=== PATIENT | female | born 1990 | race African-American/Black ===

== ENCOUNTER 2016-11-04 16:38 | Observation (INO) | payer BC, OTHER ==
[2016-11-04] MEDS ORDERED: SODIUM CHLORIDE 0.9% 1,000 ML IV STA (17:32)
[2016-11-04] MEDS ORDERED: diphenhydrAMINE 50 MG/ML 1 ML VIAL IVP STA (17:32)
[2016-11-04] MEDS ORDERED: KETOROLAC 30 MG/ML 1 ML VIAL IVP STA (17:32)
[2016-11-04] MEDS ORDERED: METOCLOPRAMIDE 5 MG/ML 2 ML VIAL IVP STA (17:32)
--- NOTE | 2016-11-04 17:39 | ED ---
Headache HPI <EricJamison - Last Filed: 11/04/16 21:52> - General Source: RN notes reviewed, old records reviewed Mode of arrival: ambulatory Limitations: no limitations <Myrna Hanily - Last Filed: 11/05/16 03:23> - General Chief Complaint: Headache Stated Complaint: Headache Time Seen by Provider: 11/04/16 17:06 - History of Present Illness Initial Comments: This is a 26-year-old female presenting to the emergency Department chief complaint of a headache for the past 2 days as well changes. She reports that her vision is blurry, and occasionally she'll have doubled with flexion. She reports it's worse in her right eye. He states that almost feels as if she is seeing everything gets under water.. She states she has a history of optic neuritis. She states that she's had no fever or chills or neck pain. She reports that her vision changes have caused her to feel somewhat off balance. She also reports that she was diagnosed with MS in 2011. She states that she had a lapse in her insurance and has not been be treated for the past few years. She previously had saw Dr. Aaron. She reports that she's had no nausea or vomiting. She is also complains of some mild abdominal pain but states that this will go away. She states that it just feels like he somewhat upset stomach. Patient denies any dysuria or hematuria, changes in bowel movements. She reports that she does wear glasses. She states that she is also concerned she may have a minor sinus infection which is related to her symptoms. (Dorene Han) - Related Data Home Medications Medication Instructions Recorded Confirmed No Known Home Medications [No 11/04/16 11/04/16 Known Home Medications] Allergies Allergy/AdvReac Type Severity Reaction Status Date / Time Coconut Allergy Anaphylaxis Verified 11/04/16 16:59 famotidine [From Pepcid] AdvReac Nausea Verified 11/04/16 17:08 Review of Systems ROS Other: All systems not noted in ROS Statement are negative. <Jamison Reyes - Last Filed: 11/04/16 21:52> ROS Other: All systems not noted in ROS Statement are negative. <Dorene Han - Last Filed: 11/05/16 03:23> ROS Statement: Those systems with pertinent positive or pertinent negative responses have been documented in the HPI. Past Medical History Additional Past Medical History / Comment(s): HX of MS and Lupus. ABN PAP TEST. History of Any Multi-Drug Resistant Organisms: None Reported Past Surgical History: Section Past Anesthesia/Blood Transfusion Reactions: No Reported Reaction Past Psychological History: No Psychological Hx Reported Smoking Status: Never smoker Past Alcohol Use History: None Reported Past Drug Use History: None Reported - Past Family History Mother Family Medical History: Blood Disorder, Deep Vein Thrombosis (DVT), Pulmonary Embolus Additional Family Medical History / Comment(s): Lupus <Dorene Han - Last Filed: 11/05/16 03:23> General Exam <Jamison Reyes - Last Filed: 11/04/16 21:52> Limitations: no limitations General appearance: alert, in no apparent distress Head exam: Present: atraumatic, normocephalic, normal inspection Eye exam: Present: normal appearance, PERRL, EOMI, other (Patient wears glasses. ). Absent: scleral icterus, conjunctival injection, periorbital swelling Expanded Eyelids: Normal Inspection: Bilateral Pupils: Regular, Round: Bilateral, Reactive: Bilateral Sclera/Conjunctival: Normal Inspection: Bilateral Posterior chamber: Papilledema: Bilateral Visual acuity (R) = 20/: 40 Visual acuity (L) = 20/: 40 With correction: Yes ENT exam: Present: normal exam, normal oropharynx, mucous membranes moist, TM's normal bilaterally Neck exam: Present: normal inspection. Absent: tenderness, meningismus, lymphadenopathy Respiratory exam: Present: normal lung sounds bilaterally. Absent: respiratory distress, wheezes, rales, rhonchi, stridor Cardiovascular Exam: Present: regular rate, normal rhythm, normal heart sounds. Absent: systolic murmur, diastolic murmur, rubs, gallop, clicks GI/Abdominal exam: Present: soft, normal bowel sounds, other (Protuberant abdomen.). Absent: distended, tenderness, guarding, rebound, rigid Extremities exam: Present: normal inspection, full ROM, normal capillary refill. Absent: tenderness, pedal edema, joint swelling, calf tenderness Back exam: Present: normal inspection Neurological exam: Present: alert, oriented X3, CN II-XII intact Psychiatric exam: Present: normal affect, normal mood Skin exam: Present: warm, dry, intact, normal color. Absent: rash <Dorene Han - Last Filed: 11/05/16 03:23> - General Exam Comments Initial Comments: This is a morbidly obese 26-year-old female. Patient does not appear to be in any acute distress. Patient is pleasant and cooperative. (EmelyDorene) Medical Decision Making - Lab Data Result diagrams: 11/04/16 17:20 11/04/16 17:20 <Jamison Reyes - Last Filed: 11/04/16 21:52> - Lab Data Result diagrams: 11/04/16 17:20 11/04/16 17:20 - Radiology Data Radiology results: report reviewed <Dorene Han - Last Filed: 11/05/16 03:23> - Medical Decision Making Medical decision-making. Patient has a history of optic neuritis. Again appears to be restarting at this time she reports she has a positive history of MS. She sees dr aaron. The case discussed with Dr. Marion patient admitted his service. Dr. Aaron be called for orders concerning optic neuritis. Dr. Eric Aaron was notified he recommends [place] Medrol 250 mg IV every 8 hours with MRI of the brain with and without contrast in the morning. Dr. Reyes (Jamison Reyes) This is a 26-year-old female presenting to the emergency Department chief complaint of a headache for the past 2 days as well changes. She reports that her vision is blurry, and occasionally she'll have doubled with flexion. She reports it's worse in her right eye. He states that almost feels as if she is seeing everything gets under water.. She states she has a history of optic neuritis. She states that she's had no fever or chills or neck pain. She reports that her vision changes have caused her to feel somewhat off balance. She also reports that she was diagnosed with MS in 2011. Patient's vision was intestine and 20/40 in both eyes with correction. She states that it seems to be acutely worse than previously. CT of the brain was performed and negative for any acute process. There is some evidence of some sinusitis. Patient labwork was all reviewed and negative for any significant abnormalities. Discussed this case with Dr. Reyes. Given patient's history of MS and optic neuritis. Appropriate to admit the patient for IV steroids. Patient informed of this. Dr. farley. We did consult Dr. Aaron and he recommended 250 mg of IV Solu-Medrol every 8 hours. He also wants an MRI of the brain with and without contrast in the morning which is been ordered. Patient agrees to the admission. (Dorene Han) - Lab Data Lab Results 11/04/16 11/04/16 11/04/16 Range/Units 17:20 17:20 17:20 WBC 6.1 (3.8-10.6) k/uL RBC 5.06 (3.80-5.40) m/uL Hgb 13.0 (11.4-16.0) gm/dL Hct 40.4 (34.0-46.0) % MCV 79.8 L (80.0-100.0) fL MCH 25.7 (25.0-35.0) pg MCHC 32.1 (31.0-37.0) g/dL RDW 14.5 (11.5-15.5) % Plt Count 303 (150-450) k/uL Neutrophils % 51 % Lymphocytes % 41 % Monocytes % 5 % Eosinophils % 1 % Basophils % 0 % Neutrophils # 3.1 (1.3-7.7) k/uL Lymphocytes # 2.5 (1.0-4.8) k/uL Monocytes # 0.3 (0-1.0) k/uL Eosinophils # 0.0 (0-0.7) k/uL Basophils # 0.0 (0-0.2) k/uL Hypochromasia Slight PT 10.2 (9.0-12.0) sec INR 1.0 (<1.2) APTT 25.5 (22.0-30.0) sec Sodium 142 (137-145) mmol/L Potassium 4.2 (3.5-5.1) mmol/L Chloride 107 (98-107) mmol/L Carbon Dioxide 23 (22-30) mmol/L Anion Gap 12 mmol/L BUN 15 (7-17) mg/dL Creatinine 0.70 (0.52-1.04) mg/dL Est GFR (MDRD) Af Amer >60 (>60 ml/min/1.73 sqM) Est GFR (MDRD) Non-Af >60 (>60 ml/min/1.73 sqM) Glucose 88 (74-99) mg/dL Calcium 9.7 (8.4-10.2) mg/dL Magnesium 1.9 (1.6-2.3) mg/dL Total Bilirubin 0.4 (0.2-1.3) mg/dL AST 23 (14-36) U/L ALT 36 (9-52) U/L Alkaline Phosphatase 99 (38-126) U/L Total Protein 7.1 (6.3-8.2) g/dL Albumin 4.1 (3.5-5.0) g/dL Amylase 43 (30-110) U/L Lipase 55 (23-300) U/L Urine Color Urine Appearance (Clear) Urine pH (5.0-8.0) Ur Specific [place] (1.001-1.035) Urine Protein (Negative) Urine Glucose (UA) (Negative) Urine Ketones (Negative) Urine Blood (Negative) Urine Nitrite (Negative) Urine Bilirubin (Negative) Urine Urobilinogen (<2.0) mg/dL Ur Leukocyte Esterase (Negative) Urine RBC (0-5) /hpf Urine WBC (0-5) /hpf Ur Squamous Epith Cells (0-4) /hpf Urine Mucus (None) /hpf Urine HCG, Qual (Not Detectd) 11/04/16 11/04/16 Range/Units 18:10 18:10 WBC (3.8-10.6) k/uL RBC (3.80-5.40) m/uL Hgb (11.4-16.0) gm/dL Hct (34.0-46.0) % MCV (80.0-100.0) fL MCH (25.0-35.0) pg MCHC (31.0-37.0) g/dL RDW (11.5-15.5) % Plt Count (150-450) k/uL Neutrophils % % Lymphocytes % % Monocytes % % Eosinophils % % Basophils % % Neutrophils # (1.3-7.7) k/uL Lymphocytes # (1.0-4.8) k/uL Monocytes # (0-1.0) k/uL Eosinophils # (0-0.7) k/uL Basophils # (0-0.2) k/uL Hypochromasia PT (9.0-12.0) sec INR (<1.2) APTT (22.0-30.0) sec Sodium (137-145) mmol/L Potassium (3.5-5.1) mmol/L Chloride (98-107) mmol/L Carbon Dioxide (22-30) mmol/L Anion Gap mmol/L BUN (7-17) mg/dL Creatinine (0.52-1.04) mg/dL Est GFR (MDRD) Af Amer (>60 ml/min/1.73 sqM) Est GFR (MDRD) Non-Af (>60 ml/min/1.73 sqM) Glucose (74-99) mg/dL Calcium (8.4-10.2) mg/dL Magnesium (1.6-2.3) mg/dL Total Bilirubin (0.2-1.3) mg/dL AST (14-36) U/L ALT (9-52) U/L Alkaline Phosphatase (38-126) U/L Total Protein (6.3-8.2) g/dL Albumin (3.5-5.0) g/dL Amylase (30-110) U/L Lipase (23-300) U/L Urine Color Yellow Urine Appearance Cloudy H (Clear) Urine pH 6.0 (5.0-8.0) Ur Specific [place] 1.028 (1.001-1.035) Urine Protein Trace H (Negative) Urine Glucose (UA) Negative (Negative) Urine Ketones Negative (Negative) Urine Blood Moderate H (Negative) Urine Nitrite Negative (Negative) Urine Bilirubin Negative (Negative) Urine Urobilinogen 3.0 (<2.0) mg/dL Ur Leukocyte Esterase Trace H (Negative) Urine RBC 4 (0-5) /hpf Urine WBC 3 (0-5) /hpf Ur Squamous Epith Cells 7 H (0-4) /hpf Urine Mucus Occasional H (None) /hpf Urine HCG, Qual Not Detected (Not Detectd) - Radiology Data No acute intracranial hemorrhage, mass effect or midline shift seen. Polyp with mucosal thickening within the next her sinus versus true mucosal polyps. ( Dorene Han) Disposition <Jamison Reyes - Last Filed: 11/04/16 21:52> Time of Disposition: 21:16 <Dorene Han - Last Filed: 11/05/16 03:23> Clinical Impression: Headache, Optic neuritis Disposition: ADMITTED IP TO THIS HOSP
[2016-11-04] MEDS: SODIUM CHLORIDE 0.9% 1,000 ML IV SCH ×2 (18:11→21:47)
[2016-11-04 18:19] LABS: Basophils % (A) 0 %; CH 24.9; CHCM 31.4; Eosinophils % (A) 1 %; HCT 40.4 % (34.0-46.0); HDW 2.58; Hypochromasia Slight; Luc # (Auto) 0.15; Luc % (Auto) 2; Lymphocytes # (A) 2.5 k/uL (1.0-4.8); Lymphocytes % (A) 41 %; MCH 25.7 pg (25.0-35.0); MCHC 32.1 g/dL (31.0-37.0); MCV 79.8 fL (80.0-100.0); Mean Platelet Volume 7.4; Monocytes # (A) 0.3 k/uL (0-1.0); Monocytes % (A) 5 %; Neutrophils # (A) 3.1 k/uL (1.3-7.7); Neutrophils % (A) 51 %; RBC 5.06 m/uL (3.80-5.40); RDW 14.5 % (11.5-15.5); WBC 6.1 k/uL (3.8-10.6); WBC (Perox) 6.26
[2016-11-04 18:31] LABS: Appearance,Urine Cloudy (Clear); Bilirubin,Urine Negative (Negative); Glucose,Urine (UA) Negative (Negative); Ketones,Urine Negative (Negative); Leukocyte Esterase,Urine Trace (Negative); Mucus,Urine Occasional /hpf; Nitrite,Urine Negative (Negative); Particle Count 9034; Protein,Urine Trace (Negative); RBC,Urine 4 /hpf (0-5); Specific Gravity,Urine 1.028 (1.001-1.035); Squamous Epithelial Cell,Urine 7 /hpf (0-4); UA Billing (MACRO vs. MICRO) MICRO; WBC,Urine 3 /hpf (0-5)
[2016-11-04 18:32] LABS: Partial Thromboplastin Time 25.5 sec (22.0-30.0)
[2016-11-04 18:35] LABS: Prothrombin Time 10.2 sec (9.0-12.0)
[2016-11-04 18:37] LABS: ALT 36 U/L (9-52); AST 23 U/L (14-36); Alkaline Phosphatase 99 U/L (38-126); Amylase 43 U/L (30-110); Anion Gap 12 mmol/L; Blood Urea Nitrogen 15 mg/dL (7-17); Calcium 9.7 mg/dL (8.4-10.2); Carbon Dioxide 23 mmol/L (22-30); Chloride 107 mmol/L (98-107); Glucose 88 mg/dL (74-99); Magnesium 1.9 mg/dL (1.6-2.3); Non-African American GFR(MDRD) >60 (>60 ml/min/1.73 sqM); Potassium 4.2 mmol/L (3.5-5.1); Sodium 142 mmol/L (137-145); Total Bilirubin 0.4 mg/dL (0.2-1.3); Total Protein 7.1 g/dL (6.3-8.2)
--- NOTE | 2016-11-04 19:05 | CT ---
EXAMINATION TYPE: CT brain wo con DATE OF EXAM: 11/04/2016 COMPARISON: MRI dated 12/21/2012. HISTORY: Headache x [address] DLP: 1124.80 mGycm. Automated Exposure Control for Dose Reduction was Utilized. TECHNIQUE: CT scan of the head is performed without contrast. FINDINGS: There is no acute intracranial hemorrhage, mass effect, or midline shift identified. The ventricles and sulci are within normal limits in size. The globes are intact. Polypoid mucosal thic kening versus true mucosal polyps are seen within the maxillary sinuses. Remaining paranasal sinuses and mastoid air cells are well aerated. IMPRESSION: 1. No acute intracranial hemorrhage, mass effect, or midline shift is seen. 2. Polypoid mucosal thickening within the maxillary sinuses versus true mucosal polyps.
[2016-11-04] MEDS ORDERED: methylPREDNISolone SOD SUCCI 250 MG in SODIUM CHLORIDE 0.9% 100 ML IVPB STA (20:40)
[2016-11-04] MEDS ORDERED: ACETAMINOPHEN TAB 325 MG TAB PO PRN (20:55)
[2016-11-04] MEDS ORDERED: KETOROLAC 30 MG/ML 1 ML VIAL IVP PRN (20:55)
[2016-11-04] MEDS ORDERED: NALOXONE 0.4 MG/ML 1 ML VIAL IV PRN (20:55)
[2016-11-04] MEDS ORDERED: ONDANSETRON 4 MG/2 ML VIAL IVP PRN (20:55)
[2016-11-04 22:46] VITALS: BMI 73.1
[2016-11-05] MEDS ORDERED: ENOXAPARIN 40 MG/0.4 ML SYRINGE SQ SCH (09:00)
[2016-11-05] MEDS: SODIUM CHLORIDE 0.9% 1,000 ML IV SCH (09:42)
[2016-11-05 17:37] VITALS: BP 140/79; PULSE 75; RESP 20; TEMP 97.3
--- NOTE | 2016-11-05 18:14 | P.HPIM ---
History of Present Illness H&P Date: 11/05/16 Chief Complaint: Foggy vision History of presenting complaint: This is a pleasant [address] Ramon. Patient was diagnosed with multiple sclerosis via lumbar puncture in 2011. Patient did follow up at the knee was to [place]. Also diagnosed with lupus. Patient was at work when she noticed headache anything becoming foggy and some loss of peripheral vision this was similar to prior MS exacerbation and she decided to come in. She also lost losing a bit of balance. Patient is put on IV Solu-Medrol. Since then she 's feeling active bit better. GEN.: Tired EYES: As above HEENT: As above] NECK: None RESPIRATORY: None CARDIOVASCULAR: None GASTROINTESTINAL: None GENITOURINARY: None MUSCULOSKELETAL: None LYMPHATICS: None HEMATOLOGICAL: None PSYCHIATRY: None NEUROLOGICAL: As above Past medical history: Multiple sclerosis, lupus, Past surgical history: Social history: Does not smoke or drink alcohol. Lives with her boyfriend. 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 Family history: DVT, PE, lupus VITAL SIGNS: 98.1, 80, 20, 162/80, 99% room air GENERAL: Well built, sitting up in a chair, BMI 73.2 comfortable. EYES: Pupils equal. Conjunctiva normal. HEENT: External appearance of nose and ears normal, oral cavity grossly normal. NECK: JVD not raised; masses not palpable. HEART: First and second heart sounds are normal; no edema. LUNGS: Respiratory rate normal; clear to auscultation. ABDOMEN: Soft, nontender, liver spleen not palpable, no masses palpable. LYMPHATICS: No lymph nodes palpable in the axilla and neck. PSYCH: Alert and oriented x3; mood and affect normal. NEUROLOGICAL: [Some decrease in peripheral vision, power and sensation grossly intact Investigations: White count 6.1 potassium 4.2 renal function normal Computed tomography scan of brain unremarkable Assessment: -Acute exacerbation of multiple sclerosis could be optic neuritis, with good response to IV Solu-Medrol -Chronic lupus not on any medications currently -Morbid obesity BMI 73.2 Plan: Patient started on IV Solu-Medrol. Requesting to go home. I did tell her she' s been to see Dr. Savage from neurology and I'll let him decide the same. Lovenox for DVT prophylaxis. Patient she dietitian for weight loss measures. Past Medical History Past Medical History: Neurologic Disorder Additional Past Medical History / Comment(s): HX of MS and Lupus. ABN PAP TEST. History of Any Multi-Drug Resistant Organisms: None Reported Past Surgical History: Section Past Anesthesia/Blood Transfusion Reactions: No Reported Reaction Past Psychological History: No Psychological Hx Reported Smoking Status: Never smoker Past Alcohol Use History: None Reported Past Drug Use History: None Reported - Past Family History Mother Family Medical History: Blood Disorder, Deep Vein Thrombosis (DVT), Pulmonary Embolus Additional Family Medical History / Comment(s): Lupus Medications and Allergies Home Medications Medication Instructions Recorded Confirmed Type No Known Home Medications [No 11/04/16 11/04/16 History Known Home Medications] Allergies Allergy/AdvReac Type Severity Reaction Status Date / Time Coconut Allergy Anaphylaxis Verified 11/04/16 16:59 famotidine [From Pepcid] AdvReac Nausea Verified 11/04/16 17:08 Results CBC & Chem 7: 11/04/16 17:20 11/04/16 17:20
--- NOTE | 2016-11-15 19:07 | DS ---
FINAL DIAGNOSIS: 1. Acute exacerbation of multiple sclerosis with possible optic neuritis. 2. Chronic lupus stable, not on any medications. 3. Morbid obesity, BMI 33.2. CONSULTATIONS: Dr. Savage from neurology. HOSPITAL COURSE: This is a patient who presented with MS exacerbation who presented with some change in vision. The patient put on IV Solu-Medrol. Started feeling better. Seen by Dr. Savage was consulted. The patient feeling better. The patient had MRI scan was scheduled. Very keen to go home. The nurse talked to Dr. Olmos team. The patient being discharged. Discharge planning more than 35 minutes. DC MEDICATIONS: 1. Prednisone taper. 2. Fiorinal prn. Follow with Dr. Hernandez in two days. Follow-up with Dr. Savage in one week. PHYSICAL EXAMINATION: ( ) power and sensation grossly intact. MTDD
== END 2016-11-05 20:27 | disposition home or self-care (01) ==
LOC: EC 16:38 → INTOOBSV 21:04 → 6PED 21:04
PROVIDERS: ADMIT Hospitalist; ATTEND Hospitalist
DX: G35 Multiple sclerosis (principal); M32.9 Systemic lupus erythematosus, unspecified; H46.9 Unspecified optic neuritis; Z88.8 Allergy status to other drugs, medicaments and biological substances; Z91.018 Allergy to other foods; E66.01 Morbid (severe) obesity due to excess calories; Z68.45 Body mass index [BMI] 70 or greater, adult
CPT/HCPCS: 99285; 96375 ×4; 96361 ×2; 96365; 96366; 96372; 96376; 36415; 80053; 82150; 83690; 83735; 85025; 85610; 85730; 81001; 81025; 70450; G0378 ×3; J1200; J2765; J2930 ×2; J1650; J1885 ×2

== ENCOUNTER 2016-11-14 12:04 | Emergency (ER) | payer BC ==
[2016-11-14 12:20] VITALS: BP 143/91; PULSE 95; RESP 20; TEMP 98.3
[2016-11-14] MEDS ORDERED: KETOROLAC 30 MG/ML 1 ML VIAL IVP STA (13:35)
[2016-11-14] MEDS ORDERED: diphenhydrAMINE 50 MG/ML 1 ML VIAL IVP STA (13:35)
[2016-11-14] MEDS ORDERED: METOCLOPRAMIDE 5 MG/ML 2 ML VIAL IVP STA (13:35)
--- NOTE | 2016-11-14 13:35 | ED ---
Chest Pain HPI - General Chief Complaint: Chest Pain Stated Complaint: Chest Pain Time Seen by Provider: 11/14/16 13:23 Source: patient, RN notes reviewed, old records reviewed Mode of arrival: wheelchair Limitations: no limitations - History of Present Illness Initial Comments: This is a 26-year-old female presenting to emergency Department chief complaining of headache and chest pain for the past few days. She was seen in this facility, admitted for an acute MS exacerbation. Patient was subsequently discharged on steroids, and has been taking the steroid taper for the past week. Patient reports that occasionally she'll feel like her heart is racing. She denies any shortness of breath, or cough associated with her chest pain. She states that it feels like it's starting from her sternum and radiates towards her back. She denies any nausea or vomiting, denies any acute vision changes, shortness of breath, cough, abdominal pain, dysuria, hematuria or changes in bowel movements. - Related Data Home Medications Medication Instructions Recorded Confirmed predniSONE See Taper PO DAILY 11/14/16 11/14/16 Previous Rx's Medication Instructions Recorded Butalb/Asprin/Caff 50-325-40Mg 1 - 2 cap PO Q4HR #12 capsule 11/14/16 [Fiorinal 50-325-40 MG] Allergies Allergy/AdvReac Type Severity Reaction Status Date / Time C[place]ut Allergy Anaphylaxis Verified 11/14/16 13:27 famotidine [From Pepcid] AdvReac DOES NOT Verified 11/14/16 13:27 WORK Review of Systems ROS Statement: Those systems with pertinent positive or pertinent negative responses have been documented in the HPI. ROS Other: All systems not noted in ROS Statement are negative. EKG Findings - EKG Comments: EKG Findings:: EKG shows normal sinus rhythm. Ventricular rate 94 bpm. MS interval 154 ms. QRS duration 60 ms. QT QTc is 3:30/422 ms. No evidence of ST elevation or T-wave inversion. Notes atrial or ventricular arrhythmias. Past Medical History Past Medical History: Neurologic Disorder Additional Past Medical History / Comment(s): HX of MS and Lupus. ABN PAP TEST. History of Any Multi-Drug Resistant Organisms: None Reported Past Surgical History: Section Past Anesthesia/Blood Transfusion Reactions: No Reported Reaction Past Psychological History: No Psychological Hx Reported Smoking Status: Never smoker Past Alcohol Use History: None Reported Past Drug Use History: None Reported - Past Family History Mother Family Medical History: Blood Disorder, Deep Vein Thrombosis (DVT), Pulmonary Embolus Additional Family Medical History / Comment(s): Lupus General Exam - General Exam Comments Initial Comments: This is a morbidly obese 26 year old male. Limitations: no limitations General appearance: alert, in no apparent distress Head exam: Present: atraumatic, normocephalic, normal inspection Eye exam: Present: normal appearance, PERRL, EOMI. Absent: scleral icterus, conjunctival injection, periorbital swelling ENT exam: Present: normal exam, mucous membranes moist Neck exam: Present: normal inspection. Absent: tenderness, meningismus, lymphadenopathy Respiratory exam: Present: normal lung sounds bilaterally. Absent: respiratory distress, wheezes, rales, rhonchi, stridor Cardiovascular Exam: Present: regular rate, normal rhythm, normal heart sounds. Absent: systolic murmur, diastolic murmur, rubs, gallop, clicks GI/Abdominal exam: Present: soft, normal bowel sounds. Absent: distended, tenderness, guarding, rebound, rigid Extremities exam: Present: normal inspection, full ROM, normal capillary refill. Absent: tenderness, pedal edema, joint swelling, calf tenderness Back exam: Present: normal inspection Neurological exam: Present: alert, oriented X3, CN II-XII intact Psychiatric exam: Present: normal affect, normal mood Skin exam: Present: warm, dry, intact, normal color. Absent: rash Course Vital Signs 11/14/16 12:19 Temperature 98.3 F Pulse Rate 95 Respiratory 20 Rate Blood Pressure 143/91 O2 Sat by Pulse 99 Oximetry - Reevaluation(s) Reevaluation #1: 11/14/16 15:30 Patient was reevaluated this time and reports that her symptoms have resolved. She states her headache is diminished and she has no chest pain. Chest Pain [facility] This is a 26-year-old female chief complaint of 1 day of chest pain, and migraine headache. She is currently being treated for MS exacerbation and being tapered down on her steroid. Patient ports that her chest pain is not associated with cough, or shortness of breath. Patient's EKG was reviewed and shows no evidence of any abnormalities. Chest x-ray was also negative, No acute cardio pulmonary processes. Patient's lab work was reviewed and showed no abnormalities, negative troponins and cardiac profile. Patient reports that she is feeling better after, Toradol, Reglan and Benadryl. Patient was informed that if her chest pain worsens or does have other associated symptoms like cough or shortness of breath she needs to come and get reevaluated. Discussed returning to the emergency department if any alarming signs or symptoms occur. Patient also requested to have medication and prescribed for her migraines. Discussed that I will write her for a short prescription for Fioricet and she needs follow-up with her primary. Disposition Clinical Impression: Atypical chest pain, Migraine Disposition: HOME SELF-CARE Condition: Good Instructions: Chest Pain (ED) Additional Instructions: Patient is to rest, increase fluids. Follow-up with primary care physician. Return to the emergency department if any alarming signs or symptoms occur. Prescriptions: Butalb/Asprin/Caff 50-325-40Mg [Fiorinal 50-325-40 MG] 1 - 2 cap PO Q4HR #12 capsule Referrals: Ramy Hernandez MD [Primary Care Provider] - 1-2 days Time of Disposition: 15:32
[2016-11-14 14:40] LABS: Anisocytosis Slight; Basophils # (A) 0.1 k/uL (0-0.2); Basophils % (A) 1 %; CH 25.9; CHCM 31.7; Eosinophils # (A) 0.1 k/uL (0-0.7); Eosinophils % (A) 0 %; HCT 45.6 % (34.0-46.0); HDW 2.62; HGB 13.9 gm/dL (11.4-16.0); Luc # (Auto) 0.13; Luc % (Auto) 1; Lymphocytes # (A) 3.7 k/uL (1.0-4.8); Lymphocytes % (A) 29 %; MCH 25.2 pg (25.0-35.0); MCHC 30.6 g/dL (31.0-37.0); MCV 82.3 fL (80.0-100.0); Mean Platelet Volume 7.7; Monocytes # (A) 0.4 k/uL (0-1.0); Monocytes % (A) 3 %; Neutrophils # (A) 8.5 k/uL (1.3-7.7); Neutrophils % (A) 67 %; RBC 5.54 m/uL (3.80-5.40); WBC 12.8 k/uL (3.8-10.6); WBC (Perox) 12.66
--- NOTE | 2016-11-14 14:49 | XR ---
EXAMINATION TYPE: XR chest 2V DATE OF EXAM: 11/14/2016 COMPARISON: NONE HISTORY: Chest pain and headache TECHNIQUE: Frontal and lateral views of the chest are obtained. FINDINGS: There is no focal air space opacity, pleural effusion, or pneumothorax seen. The cardiac silhouette size is within normal limits. The osseous structures are intact. IMPRESSION: No acute cardiopulmonary process.
[2016-11-14 14:54] LABS: ALT 36 U/L (9-52); AST 14 U/L (14-36); Alkaline Phosphatase 114 U/L (38-126); Amylase 57 U/L (30-110); Anion Gap 10 mmol/L; Blood Urea Nitrogen 20 mg/dL (7-17); Calcium 9.3 mg/dL (8.4-10.2); Carbon Dioxide 25 mmol/L (22-30); Chloride 101 mmol/L (98-107); Glucose 84 mg/dL (74-99); Magnesium 1.8 mg/dL (1.6-2.3); Non-African American GFR(MDRD) >60 (>60 ml/min/1.73 sqM); Partial Thromboplastin Time 23.9 sec (22.0-30.0); Potassium 4.7 mmol/L (3.5-5.1); Prothrombin Time 9.8 sec (9.0-12.0); Sodium 136 mmol/L (137-145); Total Bilirubin 0.2 mg/dL (0.2-1.3)
[2016-11-14 14:57] LABS: Creatine Kinase 61 U/L (30-135)
[2016-11-14 15:11] LABS: Creatine Kinase MB 0.6 ng/mL (0.0-2.4); Troponin I <0.012 ng/mL (0.000-0.034)
== END 2016-11-14 15:48 | disposition home or self-care (01) ==
LOC: EC 12:04
DX: G43.909 Migraine, unspecified, not intractable, without status migrainosus (principal); R07.89 Other chest pain; M54.9 Dorsalgia, unspecified; G35 Multiple sclerosis; E66.01 Morbid (severe) obesity due to excess calories; Z79.52 Long term (current) use of systemic steroids; Z88.8 Allergy status to other drugs, medicaments and biological substances; Z91.018 Allergy to other foods; Z68.45 Body mass index [BMI] 70 or greater, adult
CPT/HCPCS: 36415; 93005; 80053; 82150; 82550; 82553; 83690; 83735; 84484; 85025; 85610; 85730; 71020; 99285; 96374; 96375 ×2; J1200; J2765; J1885

== ENCOUNTER → 2016-12-17 | Outpatient (CLI) | payer BC ==
[2016-12-17 14:41] VITALS: BP 136/78; PULSE 103; RESP 16; TEMP 98; BMI 76.0
[2016-12-17 16:40] LABS: ALT 40 U/L (9-52); AST 22 U/L (14-36); Alkaline Phosphatase 102 U/L (38-126); Anion Gap 8 mmol/L; Blood Urea Nitrogen 13 mg/dL (7-17); Calcium 9.3 mg/dL (8.4-10.2); Carbon Dioxide 26 mmol/L (22-30); Chloride 105 mmol/L (98-107); Cholesterol 194 mg/dL (<200); Glucose 91 mg/dL (74-99); HDL Cholesterol 63 mg/dL (40-60); Non-African American GFR(MDRD) >60 (>60 ml/min/1.73 sqM); Potassium 4.4 mmol/L (3.5-5.1); Sodium 139 mmol/L (137-145); Total Bilirubin 0.2 mg/dL (0.2-1.3); Total Protein 6.8 g/dL (6.3-8.2)
[2016-12-17 17:26] LABS: Vitamin B12 620 pg/mL (239-931)
[2016-12-17 18:17] LABS: CH 24.9; HCT 39.5 % (34.0-46.0); HDW 2.58; HGB 12.8 gm/dL (11.4-16.0); Hypochromasia Slight; MCH 26.1 pg (25.0-35.0); MCHC 32.3 g/dL (31.0-37.0); MCV 80.9 fL (80.0-100.0); Mean Platelet Volume 8.2; RBC 4.89 m/uL (3.80-5.40); RDW 14.4 % (11.5-15.5); WBC 7.4 k/uL (3.8-10.6)
[2016-12-17 19:37] LABS: Hemoglobin A1C 5.7 % (4.2-6.1)
[2016-12-18 00:53] LABS: Iron Saturation 13.42 (12.00-45.00)
--- NOTE | 2016-12-28 17:40 | P.PN ---
Progress Note - Text DATE OF SERVICE: 12/17/2016 REASON FOR CONSULTATION: Initial bariatric evaluation. HISTORY OF PRESENT ILLNESS: Terrie Velez is a 26-year-old female who presents with morbid obesity. Her highest weight is 435 pounds. At her height of 5 foot 3.5 inches, her ideal body weight is 140 pounds. She is 295 pounds overweight. Her highest body mass index is 76.0. She is evaluating for sleeve gastrectomy. She has completed her psych assessment. She is pending a medical risk assessment. She has developed lower back pain including knee pain. She has a family history of lupus. No reports of diabetes. She has strong family history of obesity in her family. She has had exposure to steroids which caused palpitations from her lupus. No reports of DVT or thyroid problems. PAST MEDICAL HISTORY: 1. Morbid obesity. 2. Body mass index of 76.0 3. Multiple sclerosis. 4. Lupus. PAST SURGICAL HISTORY: section. HOME MEDICATIONS: Denies. ALLERGIES: Coconut. SOCIAL HISTORY: No tobacco use. No alcohol use. FAMILY HISTORY: No family history of ulcerative colitis disease or Crohn's disease. She does have a family history of morbid obesity. She has lupus in her family. No reports of stomach or esophageal cancer. She has a family history of diabetes. REVIEW OF ORGAN SYSTEMS: CONSTITUTIONAL: Her highest weight is 435 pounds. At her height of 5 foot 3.5 inches, her ideal body weight is 140 pounds. She is 295 pounds overweight. Her highest body mass index is 76.0. HEENT: Denies any active troubles with vision or hearing. No troubles with swallowing. ENDOCRINE: No diabetes. No hypothyroidism. CARDIOVASCULAR: No reports of palpitations or heart attacks or chest pain. RESPIRATORY: Has daytime somnolence including snoring and sleep apnea. No asthma. GI: Denies any bright red blood per rectum or constipation. Has occassional gastroesophageal reflux disease. MUSCULOSKELETAL: Has lower back pain and joint pain. Has osteoarthritis of the hips and knees. NEURO: No headaches. No seizure disorders. PSYCH: No depression without suicidal ideation. No anxiety. RHEUMATOLOGIC: Has lupus. No rheumatoid arthritis. HEMATOLOGIC: Denies any abnormal bleeding or bruising. No personal history of DVTs. SKIN: No rash. No skin cancer. PHYSICAL EXAM: VITAL SIGNS: Height 5 foot 3.5 inches, weight 435 pounds. BMI 76.0 Vital Signs Temp 98 F 12/17/16 14:27 Pulse 103 H 12/17/16 14:27 Resp 16 12/17/16 14:27 BP 136/78 12/17/16 14:27 Pulse Ox GENERAL: Well-developed female in no acute distress. HEENT: No scleral icterus. Extraocular movements grossly intact. Hears conversational speech. No nasal drainage. NECK: Supple without lymphadenopathy. Well-healed collar incision from previous thyroidectomy. CHEST: Nonlabored respirations with equal bilateral excursions. CARDIOVASCULAR: Tachycardia. Radial 2+ pulses. ABDOMEN: Obese, soft, nontender, nondistended. MUSCULOSKELETAL: No clubbing, cyanosis, or edema. Gross strength 5/5 distal lower extremities. NEURO: No focal or lateralizing signs. Cranial nerves 2 through 12 grossly within normal limits. PSYCH: Appropriate affect. Alert and oriented to person, place and time. SKIN: Good skin turgor. Well perfused. ASSESSMENT: 1. Morbid obesity due to excess calories. 2. Body mass index of 76.0. 4. Obstructive sleep apnea. 5. Osteoarthritis involving the bilateral hips. 6. Osteoarthritis of the bilateral knees. 7. Dietary surveillance and counseling. 8. Lupus. 9. Family history of morbid obesity. 10. Tachycardia. PLAN: 1. Surgical options including a band, gastric bypass, sleeve gastrectomy were described in detail. Alternatives such as gastric balloon including duodenal switch were described. 2. The [place] [facility]ariat[facility] surgical collabor[facility] data and outcomes calculator were described with surgical options. 3. Recommend a bariatric metabolic panel to evaluate for micro- including macronutrient deficiencies. 4. Recommend evaluation for sleep apnea. 5. Dietary surveillance and counseling was reviewed. I have asked her to increase her protein intake to at least 70 grams daily. 6. Will need cardiac risk assessment. 7. Recommend medical risk assessment. 8. Psych assessment per insurance guidelines. 9. Follow up upon completion of upper endoscopy. 10. Recommend food journal. 11. Recommend EKG especially with history of tachycardia. Thank you for this consultation.
== END | disposition home or self-care (01) ==
LOC: BARWHC3 14:15
PROVIDERS: ATTEND Surgery Plastic and Reconstructive Surgery
DX: E66.01 Morbid (severe) obesity due to excess calories (principal); G47.33 Obstructive sleep apnea (adult) (pediatric); M16.0 Bilateral primary osteoarthritis of hip; M17.0 Bilateral primary osteoarthritis of knee; M32.9 Systemic lupus erythematosus, unspecified; R00.0 Tachycardia, unspecified; E88.81 Metabolic syndrome and other insulin resistance; D50.8 Other iron deficiency anemias; E44.0 Moderate protein-calorie malnutrition; I11.9 Hypertensive heart disease without heart failure; Z68.45 Body mass index [BMI] 70 or greater, adult; Z71.3 Dietary counseling and surveillance
CPT/HCPCS: 36415; 80053; 80061; 82306; 82607; 82728; 82746; 83036; 83540; 83550; 84425; 84443; 85027; 99211

== ENCOUNTER → 2017-05-12 | Outpatient (CLI) | payer BC ==
[2017-05-12 17:29] LABS: ALT 30 U/L (9-52); AST 24 U/L (14-36); Albumin 4.1 g/dL (3.5-5.0); Alkaline Phosphatase 91 U/L (38-126); Anion Gap 10 mmol/L; Blood Urea Nitrogen 17 mg/dL (7-17); Calcium 9.9 mg/dL (8.4-10.2); Carbon Dioxide 27 mmol/L (22-30); Chloride 101 mmol/L (98-107); Glucose 86 mg/dL (74-99); Potassium 4.5 mmol/L (3.5-5.1); Sodium 138 mmol/L (137-145); Total Bilirubin 0.2 mg/dL (0.2-1.3); Total Protein 7.2 g/dL (6.3-8.2)
[2017-05-12 17:37] LABS: Basophils % (A) 0 %; Eosinophils % (A) 0 %; HCT 38.7 % (34.0-46.0); HGB 11.3 gm/dL (11.4-16.0); Hypochromasia Moderate; Lymphocytes # (A) 2.5 k/uL (1.0-4.8); Lymphocytes % (A) 41 %; MCH 23.8 pg (25.0-35.0); MCHC 29.2 g/dL (31.0-37.0); MCV 81.4 fL (80.0-100.0); Mean Platelet Volume 7.1; Monocytes # (A) 0.2 k/uL (0-1.0); Monocytes % (A) 4 %; Neutrophils # (A) 3.2 k/uL (1.3-7.7); Neutrophils % (A) 53 %; Platelet Count 347 k/uL (150-450); RBC 4.76 m/uL (3.80-5.40); RDW 14.3 % (11.5-15.5)
== END | disposition home or self-care (01) ==
LOC: LABPAT 16:43
PROVIDERS: ATTEND Surgery Plastic and Reconstructive Surgery
DX: Z01.812 Encounter for preprocedural laboratory examination (principal)
CPT/HCPCS: 36415; 80053; 85025

== ENCOUNTER 2017-05-18 05:55 | Inpatient (IN) | payer BC ==
--- NOTE | 2017-05-17 16:34 | P.GSHP ---
History of Present Illness H&P Date: 05/18/17 DATE OF SERVICE: 05/18/2017 REASON FOR ADMISSION: Morbid obesity. HISTORY OF PRESENT ILLNESS: Terrie Velez is a 27-year-old female who presents with morbid obesity. Her highest weight is 440 pounds. At her height of 5 foot 3.75 inches, her ideal body weight is 140 pounds. She is 300 pounds overweight. Her highest body mass index is 76.0. She is evaluating for sleeve gastrectomy. She has developed lower back pain including knee pain and obstructive sleep apnea. She now presents for sleeve gastrectomy. PAST MEDICAL HISTORY: 1. Morbid obesity. 2. Body mass index of 76.0 3. Multiple sclerosis. 4. Lupus. 5. Obstructive sleep apnea. PAST SURGICAL HISTORY: section. HOME MEDICATIONS: Denies. ALLERGIES: Coconut. SOCIAL HISTORY: No tobacco use. No alcohol use. FAMILY HISTORY: No family history of ulcerative colitis disease or Crohn's disease. She does have a family history of morbid obesity. She has lupus in her family. No reports of stomach or esophageal cancer. She has a family history of diabetes. REVIEW OF ORGAN SYSTEMS: CONSTITUTIONAL: Her highest weight is 440pounds. At her height of 5 foot 3.75 inches, her ideal body weight is 140 pounds. She is 300 pounds overweight. Her highest body mass index is 76.0. HEENT: Denies any active troubles with vision or hearing. No troubles with swallowing. ENDOCRINE: No diabetes. No hypothyroidism. CARDIOVASCULAR: No reports of palpitations or heart attacks or chest pain. RESPIRATORY: Has daytime somnolence including snoring and sleep apnea. No asthma. GI: Denies any bright red blood per rectum or constipation. Has occassional gastroesophageal reflux disease. MUSCULOSKELETAL: Has lower back pain and joint pain. Has osteoarthritis of the hips and knees. NEURO: No headaches. No seizure disorders. PSYCH: No depression without suicidal ideation. No anxiety. RHEUMATOLOGIC: Has lupus. No rheumatoid arthritis. HEMATOLOGIC: Denies any abnormal bleeding or bruising. No personal history of DVTs. SKIN: No rash. No skin cancer. PHYSICAL EXAM: VITAL SIGNS: Height 5 foot 3.75 inches, weight 440 pounds. BMI 76.0 GENERAL: Well-developed female in no acute distress. HEENT: No scleral icterus. Extraocular movements grossly intact. Hears conversational speech. No nasal drainage. NECK: Supple without lymphadenopathy. Well-healed collar incision from previous thyroidectomy. CHEST: Nonlabored respirations with equal bilateral excursions. CARDIOVASCULAR: Regular rate. Regular rhythm. Radial 2+ pulses. ABDOMEN: Obese, soft, nontender, nondistended. MUSCULOSKELETAL: No clubbing, cyanosis, or edema. Gross strength 5/5 distal lower extremities. NEURO: No focal or lateralizing signs. Cranial nerves 2 through 12 grossly within normal limits. PSYCH: Appropriate affect. Alert and oriented to person, place and time. SKIN: Good skin turgor. Well perfused. ASSESSMENT: 1. Morbid obesity due to excess calories. 2. Body mass index of 76.0. 4. Obstructive sleep apnea. 5. Osteoarthritis involving the bilateral hips. 6. Osteoarthritis of the bilateral knees. 7. Dietary surveillance and counseling. 8. Lupus. 9. Family history of morbid obesity. 10. Iron deficiency anemia. PLAN: 1. Surgical options including a band, gastric bypass, sleeve gastrectomy were described in detail. Alternatives such as gastric balloon including duodenal switch were described. She has elected for a sleeve gastrectomy. 2. The [place] bariat[facility] surgical collaboratory data and outcomes calculator were described with surgical options. 3. Inpatient hospitalization anticipated for 2 nights. 4. DVT prophylaxis. 5. Antibiotic prophylaxis. 6. For patient's family history of DVTs, will likely need bridge therapy with Lovenox. Thank you for this consultation. Past Medical History Past Medical History: Neurologic Disorder Additional Past Medical History / Comment(s): MS and Lupus- states no current symptoms. , hx of optic neuritis. History of Any Multi-Drug Resistant Organisms: None Reported Past Surgical History: Section Additional Past Surgical History / Comment(s): recent EGD Past Anesthesia/Blood Transfusion Reactions: No Reported Reaction Smoking Status: Never smoker - Past Family History Mother Family Medical History: Deep Vein Thrombosis (DVT), Pulmonary Embolus Additional Family Medical History / Comment(s): Lupus Medications and Allergies Home Medications Medication Instructions Recorded Confirmed Type Paragard VAGINAL ONCE 05/11/17 History Allergies Allergy/AdvReac Type Severity Reaction Status Date / Time coconut Allergy Anaphylaxis Verified 05/11/17 10:58
[~2017-05-18 05:55] MED LIST: CHLORHEXIDINE GLUCONATE 15 ML CUP MUCOUS MEM ONE; DEXAMETHASONE SOD PHOSPHATE 10 MG/ML 1 ML VIAL IV ONE; ENOXAPARIN 40 MG/0.4 ML SYRINGE SQ ONE; ENOXAPARIN 40 MG/0.4 ML SYRINGE SQ STA; MIDAZOLAM 2 MG/2 ML VIAL IV PRN; MORPHINE SULFATE 4 MG/ML SYRINGE IV PRN; ONDANSETRON 4 MG/2 ML VIAL IVP ONE; PANTOPRAZOLE 40 MG/10 ML VIAL IV STA; SCOPOLAMINE 1.5MG/72HR PATCH TRANSDERM ONE
[2017-05-18] MEDS: LACTATED RINGERS 1,000 ML IV SCH ×2 (07:00→07:30)
[2017-05-18] MEDS ORDERED: BUPIVACAINE (PF) 0.25% 30 ML VIAL SQ ONE (07:37)
[2017-05-18] MEDS ORDERED: SUCCINYLCHOLINE CHLORIDE 100 MG/5 ML SYR IV ONE (07:42)
[2017-05-18] MEDS ORDERED: HYDROmorphone (PF) 1 MG/ML ONE (07:42)
[2017-05-18] MEDS ORDERED: GLYCOPYRROLATE 0.2 MG/ML 2 ML VIAL ONE (07:42)
[2017-05-18] MEDS ORDERED: LIDOCAINE 1% INJ 10MG/ML (20 ML MDV) ONE (07:42)
[2017-05-18] MEDS ORDERED: VECURONIUM 10 MG VIAL IV ONE (07:42)
[2017-05-18] MEDS ORDERED: PROPOFOL 10 MG/ML 20 ML VIAL IV ONE (07:42)
[2017-05-18] MEDS ORDERED: MIDAZOLAM 2 MG/2 ML VIAL ONE (07:42)
[2017-05-18] MEDS ORDERED: fentaNYL (PF) 50 MCG/ML 2 ML AMP ONE (07:42)
[2017-05-18] MEDS ORDERED: NEOSTIGMINE 1 MG/ML 10 ML VIAL ONE (07:42)
[2017-05-18] MEDS ORDERED: WATER FOR INJECTION, STERILE 10 ML VIAL IV ONE (07:42)
[2017-05-18] MEDS ORDERED: LACTATED RINGERS 1,000 ML IV ONE (09:43)
[2017-05-18] MEDS ORDERED: ONDANSETRON 4 MG/2 ML VIAL IVP PRN (10:05)
[2017-05-18] MEDS ORDERED: NALOXONE 0.4 MG/ML 1 ML VIAL IV PRN (10:05)
--- NOTE | 2017-05-18 10:05 | P.PCN ---
Date of Procedure: 05/18/17 Preoperative Diagnosis: Morbid obesity Postoperative Diagnosis: Seen Procedure(s) Performed: Robotic sleeve gastrectomy with 40-[place] bougie Anesthesia: [facility]ERVA, local Surgeon: Jessica Gonzalez Estimated Blood Loss (ml): 5 Pathology: other (Sleeve gastrectomy) Condition: stable Disposition: floor Operative Findings: 1. Negative leak test. 2. 8 - 45 mm staple loads, 2 green , 6 blues 3. Stomach size of 19 cm x 4 cm
[2017-05-18] MEDS: diphenhydrAMINE 50 MG/ML 1 ML VIAL IVP ONE ×3 (10:42→14:08)
[2017-05-18] MEDS: MORPHINE SULFATE 10 MG/ML SYRINGE IVP ONE ×6 (11:34→15:33)
[2017-05-18 16:26] VITALS: BMI 74.2
[2017-05-18] MEDS: HYDROmorphone 0.5 MG/0.5 ML SYRINGE IVP PRN ×2 (16:38→23:37)
[2017-05-18] MEDS: ALBUTEROL NEBULIZED 2.5 MG/3 ML INHALATION SCH ×2 (17:25→22:07)
[2017-05-18] MEDS: AMPICILLIN-SULBACTAM 3 GM in SODIUM CHLORIDE 0.9% 100 ML IVPB SCH ×3 (17:31→23:36)
[2017-05-18] MEDS: SIMETHICONE 40 MG/0.6 ML DROPS 2,000 MG/30 ML BOTTLE PO SCH ×2 (18:09→23:37)
[2017-05-18] MEDS: HYOSCYAMINE ORAL DROPS 1.875 MG/15 ML BOTTLE PO SCH ×2 (18:10→23:37)
[2017-05-18] MEDS: HYDROcodone/APAP 15 ML SOLUTION PO PRN (19:37)
[2017-05-18] MEDS: 0.9% NACL WITH KCL 20 MEQ/L 1,000 ML IV SCH ×2 (20:00→21:27)
[2017-05-19] MEDS: HYDROcodone/APAP 15 ML SOLUTION PO PRN ×3 (03:02→14:48)
[2017-05-19] MEDS: LACTATED RINGERS 1,000 ML IV SCH (03:29)
[2017-05-19] MEDS: HYOSCYAMINE ORAL DROPS 1.875 MG/15 ML BOTTLE PO SCH ×2 (05:09→12:00)
[2017-05-19] MEDS: SIMETHICONE 40 MG/0.6 ML DROPS 2,000 MG/30 ML BOTTLE PO SCH ×2 (05:10→12:00)
[2017-05-19] MEDS: 0.9% NACL WITH KCL 20 MEQ/L 1,000 ML IV SCH (05:10)
[2017-05-19 07:27] LABS: Basophils % (A) 0 %; Eosinophils % (A) 1 %; HCT 36.1 % (34.0-46.0); HGB 10.5 gm/dL (11.4-16.0); Hypochromasia Marked; Lymphocytes # (A) 1.4 k/uL (1.0-4.8); Lymphocytes % (A) 19 %; MCH 23.9 pg (25.0-35.0); MCHC 29.1 g/dL (31.0-37.0); Mean Platelet Volume 7.2; Monocytes # (A) 0.3 k/uL (0-1.0); Monocytes % (A) 4 %; Neutrophils # (A) 5.4 k/uL (1.3-7.7); Neutrophils % (A) 75 %; Platelet Count 286 k/uL (150-450); RDW 14.3 % (11.5-15.5); WBC 7.1 k/uL (3.8-10.6)
[2017-05-19 07:47] LABS: Anion Gap 11 mmol/L; Blood Urea Nitrogen 9 mg/dL (7-17); Carbon Dioxide 26 mmol/L (22-30); Chloride 105 mmol/L (98-107); Phosphorus 3.8 mg/dL (2.5-4.5); Potassium 4.6 mmol/L (3.5-5.1); Sodium 142 mmol/L (137-145)
[2017-05-19] MEDS ORDERED: 1: MVI, ADULT NO.4 WITH VIT K 10 ML, THIAMINE 100 MG, FOLIC ACID 1 MG, POTASSIUM CHLORID IV SCH ×6 (08:00)
[2017-05-19] MEDS: ALBUTEROL NEBULIZED 2.5 MG/3 ML INHALATION SCH ×2 (08:04→11:58)
--- NOTE | 2017-05-19 08:48 | FL ---
EXAMINATION TYPE: FL UGI DATE OF EXAM: 05/19/2017 LIMITED UGI-ESOPHAGRAM: CLINICAL HISTORY: Obesity, bariatric surgery yesterday. TECHNIQUE: Limited esophagram is performed utilizing 25 oz of Omnipaque 350. A total of 38 seconds o f fluoroscopic time was utilized during procedure with 60 images saved. FINDINGS: The patient swallowed contrast without difficulty or delay. Esophageal peristalsis and mo tility are within normal limits. There is good flow of contrast along the diaphragmatic hiatus into t he stomach, there is no evidence of contrast extravasation to suggest leak. No persistent hiatal jeffry ia is seen. Patient remains asymptomatic. IMPRESSION: No evidence of leak or significant obstruction status post Jose fundoplication surgery.
[2017-05-19] MEDS ORDERED: ENOXAPARIN 40 MG/0.4 ML SYRINGE SQ SCH (09:00)
[2017-05-19] MEDS ORDERED: SODIUM FERRIC GLUCONAT-SUCROSE 125 MG in SODIUM CHLORIDE 0.9% 100 ML IVPB SCH (09:00)
[2017-05-19] MEDS ORDERED: PANTOPRAZOLE 40 MG/10 ML VIAL IV SCH (09:00)
--- NOTE | 2017-05-19 11:47 | P.PN ---
<Keisha Pittsne M - Last Filed: 05/19/17 11:37> Subjective Progress Note Date: 05/19/17 27-year-old female seen and examined this morning. patient's highest weight was 440 pounds. At 5 feet 3 ideal body weight 140 pounds. Patient is 300 pounds overweight. Highest BMI 76. Patient has been evaluated for sleep gastrotomy. elected to proceed patient underwent on May 18 robotic sleeve gastrotomy for morbid obesity Patient states that she has been up last evening to the bathroom and back urinating no difficulty tolerating bariatric clear liquid diet heart rate in the 70s afebrile sats on 2 L 99% Objective - Vital Signs Vital signs: Vital Signs Temp 98.1 F 05/19/17 07:00 Pulse 61 05/19/17 07:00 Resp 16 05/19/17 07:00 BP 137/85 05/19/17 07:00 Pulse Ox 99 05/19/17 07:00 Intake & Output 05/18/17 05/19/17 05/19/17 18:59 06:59 18:59 Intake Total 1800 1200 Output Total 155 Balance 1645 1200 Weight 194.5 kg Intake: IV 1800 Intake, IV Titration 1200 Amount 0.9% NaCl with KCl 20 Meq 1200 /l 1,000 ml @ 150 mls/hr IV .Q6H40M [facility] Rx#: [id number] Output: Urine 150 Estimated Blood Loss 5 Other: Voiding Method Toilet # Voids 3 - Exam Physical exam 27-year-old female resting in bed appears in no acute distress states pain medication effective for pain control Lungs adequate air movement. On room air sats are 96% no cough noted no shortness of breath Heart S1-S2 audible regular no murmur denying chest pain Abdomen obese surgical dressing sites dry surgical tenderness appropriate urinating no difficulty reports tolerating clear liquid bariatric diet no nausea no vomiting no stool states not passing gas Extremities trace pedal edema bilaterally lower extremities - Labs CBC & Chem 7: 05/19/17 06:42 05/19/17 06:42 Labs: Abnormal Lab Results - Last 24 Hours (Table) 05/19/17 Range/Units 06:42 Hgb 10.5 L (11.4-16.0) gm/dL MCH 23.9 L (25.0-35.0) pg MCHC 29.1 L (31.0-37.0) g/dL Assessment and Plan Assessment: Impression Morbid obesity BMI 74 due to excessive calories Obstructive sleep apnea History of lupus Family history of morbid obesity Osteoarthritis of the bilateral knees Iron deficiency anemia Plan Continue postop bariatric care Increase activity Home meds as tolerated Pain control DVT and GI prophylaxis on Lovenox and protonix IV iron as ordered daily Further recommendations pending The above impression and plan of care have been discussed and directed by signing physician. Brittny Pitts nurse practitioner acting as scribe for signing physician. <Jessica Gonzalez N - Last Filed: 05/19/17 14:32> Objective - Vital Signs Vital signs: Vital Signs Temp 98.1 F 05/19/17 07:00 Pulse 104 H 05/19/17 13:49 Resp 20 05/19/17 13:49 BP 137/85 05/19/17 07:00 Pulse Ox 93 L 05/19/17 13:49 Intake & Output 05/18/17 05/19/17 05/19/17 18:59 06:59 18:59 Intake Total 1800 1200 Output Total 155 Balance 1645 1200 Weight 194.5 kg 194.5 kg Intake: IV 1800 Intake, IV Titration 1200 Amount 0.9% NaCl with KCl 20 Meq 1200 /l 1,000 ml @ 150 mls/hr IV .Q6H40M [facility] Rx#: [id number] Output: Urine 150 Estimated Blood Loss 5 Other: Voiding Method Toilet # Voids 3 - Labs CBC & Chem 7: 05/19/17 06:42 05/19/17 06:42 Labs: Abnormal Lab Results - Last 24 Hours (Table) 05/19/17 Range/Units 06:42 Hgb 10.5 L (11.4-16.0) gm/dL MCH 23.9 L (25.0-35.0) pg MCHC 29.1 L (31.0-37.0) g/dL
[2017-05-19] MEDS: HYDROmorphone 0.5 MG/0.5 ML SYRINGE IVP PRN (11:59)
--- NOTE | 2017-05-19 14:11 | P.DS ---
Providers Date of admission: 05/18/17 05:55 Expected date of discharge: 05/19/17 Attending physician: Jessica Gonzalez Primary care physician: Stated None Hospital Course: 27-year-old female presented to undergo an elective sleeve gastrotomy for morbid obesity. Patient's highest weight was 440 pounds. At 5 feet 3 ideal body weight 140. Patient was 300 pounds overweight. Highest BMI 76. BMI on admission 74. Patient was evaluated for a sleeve gastrotomy. Patient elected to go the procedure May 18 robotic sleeve gastrotomy done for morbid obesity. Patient does have a family history of blood clots was given a prescription for Lovenox 40 subcu daily for 7 days was given instructions by the nursing staff on giving the injections. On the day of discharge patient was up ambulatory on the unit tolerating bariatric clear diet. Heart rate in the 70s. In the sats on room air were 93%. Patient was felt to be hemodynamically stable and appropriate proceed with a discharge to home Impression Morbid obesity BMI 74 due to excessive calories Obstructive sleep apnea History of lupus Family history of morbid obesity Osteoarthritis of the bilateral knees Iron deficiency anemia Positive family history of blood clots The above impression and plan of care have been discussed and directed by signing physician. Brittny Pitts nurse practitioner acting as scribe for signing physician. Plan - Discharge Summary Discharge Rx Participant: Yes New Discharge Prescriptions: New Enoxaparin [Lovenox] 40 mg SQ DAILY #7 syringe Bisacodyl [Dulcolax] 5 mg PO DAILY PRN #10 tablet. PRN Reason: Constipation Ondansetron Odt [Zofran Odt] 4 mg PO Q8HR PRN #9 tab PRN Reason: Nausea Simethicone 40 mg/0.6 ml Drops [Mylicon Drops] 40 mg PO PCHS PRN #30 ml PRN Reason: Gas Continue Paragard 1 dose VAGINAL ONCE Discharge Medication List Paragard 1 dose VAGINAL ONCE 05/11/17 [History] Bisacodyl [Dulcolax] 5 mg PO DAILY PRN #10 tablet. 05/19/17 [Rx] Enoxaparin [Lovenox] 40 mg SQ DAILY #7 syringe 05/19/17 [Rx] Ondansetron Odt [Zofran Odt] 4 mg PO Q8HR PRN #9 tab 05/19/17 [Rx] Simethicone 40 mg/0.6 ml Drops [Mylicon Drops] 40 mg PO PCHS PRN #30 ml [Rx]
[2017-05-19 14:44] VITALS: BP 118/76; PULSE 61; RESP 16; TEMP 98.2
[2017-05-19] MEDS ORDERED: HYDROmorphone 4 MG TABLET PO PRN (16:02)
--- NOTE | 2017-05-27 23:08 | P.OP ---
Date of Procedure: 05/18/17 Description of Procedure: SURGEON: SAI SILVA MD LOGISTICS INTERN: 1. Bao Rios. 2. Gabrielle Holt. PREOPERATIVE DIAGNOSES: 1. Morbid obesity due to excess calories. 2. Body mass index of 76.0. 4. Obstructive sleep apnea. 5. Osteoarthritis involving the bilateral hips. 6. Osteoarthritis of the bilateral knees. 7. Dietary surveillance and counseling. 8. Lupus. 9. Family history of morbid obesity. 10. Iron deficiency anemia. POSTOPERATIVE DIAGNOSES: 1. Morbid obesity due to excess calories. 2. Body mass index of 76.0. 4. Obstructive sleep apnea. 5. Osteoarthritis involving the bilateral hips. 6. Osteoarthritis of the bilateral knees. 7. Dietary surveillance and counseling. 8. Lupus. 9. Family history of morbid obesity. 10. Iron deficiency anemia. OPERATION: 1. Robotic assisted daVinci Xi laparoscopic sleeve gastrectomy with 40-Zimbabwean bougie, multiport. 2. Intraoperative esophagogastroduodenoscopy. ANESTHESIA: GETA, local ESTIMATED BLOOD LOSS: 5 mL SPECIMENS REMOVED: Sleeve gastrectomy COMPLICATIONS: None. Condition: stable Disposition: floor INDICATIONS: The patient is a 27-year-old female who comes in for evaluation in the bariatric program. At height of 5 feet 3.75 inches, she came in weighing 440 pounds. Her ideal body weight is 154 pounds. Today he comes in weighing 332 pounds. He is 140 pounds overweight. She comes in for evaluation for sleeve gastrectomy. She did complete an upper endoscopy with findings consistent with gastritis. No moderate gastroesophageal reflux disease was identified at the time of her evaluation. Separately, she reports lifelong history of troubles with her weight. Now she presents for further evaluation and management. She has developed hypertension, obstructive sleep apnea including bilateral knee pain, hip pain, and back pain from osteoarthritis. She is evaluating for a sleeve gastrectomy. All surgical options for morbid obesity had been described using the [place] bariatric surgery collaborative comorbidity resolution including complication risk score. A second-generation bariatric consent form was described in detail including the possibility of protein malnutrition, leaks, gastric stricture, venous thrombosis, gastroesophageal reflux disease, need for further surgery for which she demonstrated understanding. Benefits and risks of the procedure were described at length. Informed consent was obtained. DESCRIPTION: The patient was brought into the operating room theater. She was placed on a split leg table. Preoperatively she had received Lovenox subcutaneously for DVT prophylaxis. Additionally she had undergone Peridex oral solution as an oral decontaminant. After general induction, the abdomen was prepped and draped in standard sterile fashion. The patient had previously voided prior to coming to the operating room. An Ioban draping was placed along the abdomen. A robotic da Rosalina Xi system was prepped and primed. At 15 cm from the xiphoid, proposed port sites were marked with indelible marker along the anterior axillary line bilaterally, mid axillary line bilaterally with each ports were marked 10 to 15 cm from each other. The robotic stapler port was marked for the right midclavicular line. A 5 mm 0 degrees laparoscopic trocar entry was performed along the left upper quadrant. The abdomen was insufflated to 15 mmHg pressure she tolerated well. Diagnostic laparoscopy demonstrated no injury to bowel, viscera, or mesentery. The liver surface was unremarkable. The liver edge was sharp consistent with high protein and low carb diet. No injury had occurred to the small bowel or viscera. Along the hiatus no evidence of large prominent hiatal hernia was encountered. Two 8 mm port was placed along the left upper abdominal wall after exchanging the 5 mm port. Please note that the ports were placed at least 20 cm away from the target anatomy. Care was taken to check each robotic arms were safely away from collision with the bed or the patient. At the epigastrium, a medium sized Supa liver retractor was placed under direct visualization with the Iron Fertilizer Mixer placed over the right shoulder of the patient. All robotic arms were used. Next, 12-mm robot stapler port was placed along the right upper quadrant. The camera 8-mm port was maintained along epigastrium. The patient was repositioned in reverse Trendelenburg position at 14-degrees after lowering the bed. The robot was docked along the left side of the patient. Using a grasper for arm 3, a vessel sealer for arm 2, including grasper for arm 1, the robotic system was docked and primed as described. Instruments were interchanged by the case management assistant for stapler loads. The camera was placed at 30- degrees down. I had sat at the console. The pylorus was identified and 6 cm proximally along the greater curvature of the stomach, the short gastrics were mobilized towards to the angle of His using a vessel sealer. Hemostasis was excellent during this portion of the procedure. Next, the upper pole of the stomach was adherent to the left yue, which was gently dissected free using atraumatic grasper. Moderate redundancy of the posterior upper pole of the stomach was identified. The nursing turning lathe tender placed a 40-Zimbabwean blunted bougie into the stomach. Robotic stapler green 45-mm loads followed by blue 45 mm loads were used to create the sleeve. Initial firing was across the antrum of the stomach towards the angle of His. The staple line was completely hemostatic and linear without corkscrewing. Hemostasis was excellent. The space from the angularis incisura of the sleeve was approximately 4 cm. I then went to the head of the bed to perform the intraoperative esophagogastroduodenoscopy leak test. The upper pole of the stomach was bathed using normal saline solution. The scope was withdrawn with careful inspection along the staple line for which no leaks were found along the entire length. Additionally, the sleeve was completely hemostatic without any encroachment along the angularis incisura. Its topology was a straight tube. No stricture was encountered upon placement of the scope. The GI tract was desufflated. The patient tolerated this portion of the procedure well. The scope was completely withdrawn. The robot was undocked. I then rescrubbed into case, whereby the irrigation fluid was aspirated from the abdominal cavity. Tisseel fibrin sealant was placed along the entire staple length. Once dried the Supa liver retractor was removed. Attention was now brought to removal of the specimen. The distal end of the sleeve gastrectomy specimen was brought out through the 12 mm port. The specimen was gently removed en total sleeve gastrectomy specimen. No contamination had occurred during this process. All instruments and pneumoperitoneum including irrigation fluid was removed from the abdominal cavity. The 12 mm port site was irrigated with warm normal saline solution and diluted hydron peroxide. The 12-mm port site was reapproximated using 0 Vicryl and Navin-Carroll. The final incisions were closed using subcuticular running suture of 4-0 Monocryl. Dermabond was applied to the skin once the skin had been cleansed. OptiFoam dressing was placed along the stomach extraction site. At the end of the procedure, needle, sponge, and instrument count was verified correct by the instructor adjunct surgical technician. The patient was taken to the postanesthesia care unit in stable condition. She had tolerated the procedure well. Intraoperative films and findings were reviewed with the patient's family. FINDINGS: 1. Negative intraoperative esophagogastrojejunoscopy leak test. 2. No hepatomegaly or hiatus hernia. 3. Total of 8 staplers used including 2 - 45 mm green robot randi and 6 - 45 mm blue robot loads used to create the gastric sleeve. 4. Stomach size of 19 cm x 4 cm 5. Moderate redundant upper posterior pole of the stomach.
== END 2017-05-19 16:00 | disposition home or self-care (01) | DRG 621 ==
LOC: 2ORWHC 05:55 → 3SUR 15:47
PROVIDERS: ADMIT Surgery Plastic and Reconstructive Surgery; ATTEND Surgery Plastic and Reconstructive Surgery
PROC: 8E0W4CZ Robotic Assisted Procedure of Trunk Region, Percutaneous Endoscopic Approach (ICD-10-PCS; 2017-05-18)
PROC: 0DJ08ZZ Inspection of Upper Intestinal Tract, Via Natural or Artificial Opening Endoscopic (ICD-10-PCS; 2017-05-18)
PROC: 0DB64Z3 Excision of Stomach, Percutaneous Endoscopic Approach, Vertical (ICD-10-PCS; principal; 2017-05-18 07:30)
DX: E66.01 Morbid (severe) obesity due to excess calories (principal); G35 Multiple sclerosis; M32.9 Systemic lupus erythematosus, unspecified; G47.33 Obstructive sleep apnea (adult) (pediatric); M16.0 Bilateral primary osteoarthritis of hip; M17.0 Bilateral primary osteoarthritis of knee; D50.9 Iron deficiency anemia, unspecified; M47.9 Spondylosis, unspecified; I10 Essential (primary) hypertension; K29.70 Gastritis, unspecified, without bleeding; Z83.2 Family history of diseases of the blood and blood-forming organs and certain disorders involving the immune mechanism; Z83.3 Family history of diabetes mellitus; Z91.018 Allergy to other foods; Z68.45 Body mass index [BMI] 70 or greater, adult; Z71.3 Dietary counseling and surveillance; Z86.69 Personal history of other diseases of the nervous system and sense organs
CPT/HCPCS: 74240; 80051; 81025; 82310; 82565; 83735; 84100; 84520; 85025; 86850; 86900; 86901; 88307

== ENCOUNTER → 2017-05-21 | Outpatient (CLI) | payer BC ==
[2017-05-21 12:39] VITALS: BP 135/57; PULSE 65; TEMP 98; BMI 74.0
--- NOTE | 2017-05-21 13:20 | P.PN ---
Subjective Progress Note Date: 05/21/17 To whom it may concern: Terrie Velez is under my surgical care. She may return to work, 05/25/17, with restrictions of no lifting greater than 4 pounds in 4 weeks. Lifting restrictions will be removed June 15. Regards, Jessica Gonzalez MD FACS Objective - Vital Signs Vital signs: Vital Signs Temp 98 F 05/21/17 12:37 Pulse 65 05/21/17 12:37 Resp BP 135/57 05/21/17 12:37 Pulse Ox Intake & Output 05/20/17 05/21/17 05/21/17 18:59 06:59 18:59 Weight 194.138 kg
== END | disposition home or self-care (01) ==
LOC: BARWHC3 12:00
PROVIDERS: ATTEND Surgery Plastic and Reconstructive Surgery
DX: E66.01 Morbid (severe) obesity due to excess calories (principal); Z68.45 Body mass index [BMI] 70 or greater, adult
CPT/HCPCS: 97803; 99211

== ENCOUNTER → 2017-05-25 | Outpatient (CLI) | payer BC ==
[~2017-05-25] MED LIST changes: -CHLORHEXIDINE GLUCONATE 15 ML CUP MUCOUS MEM ONE; -DEXAMETHASONE SOD PHOSPHATE 10 MG/ML 1 ML VIAL IV ONE; -ENOXAPARIN 40 MG/0.4 ML SYRINGE SQ ONE; -ENOXAPARIN 40 MG/0.4 ML SYRINGE SQ STA; +IOHEXOL 350 MG/ML 25 ML BOTTLE (ORAL USE) PO PRN; -MIDAZOLAM 2 MG/2 ML VIAL IV PRN; -MORPHINE SULFATE 4 MG/ML SYRINGE IV PRN; -ONDANSETRON 4 MG/2 ML VIAL IVP ONE; -PANTOPRAZOLE 40 MG/10 ML VIAL IV STA; +RX INFO: IV CONTRAST WAS GIVEN 1 EACH MISC MISCELLANE PRN; -SCOPOLAMINE 1.5MG/72HR PATCH TRANSDERM ONE
[2017-05-25 12:23] VITALS: RESP 16
--- NOTE | 2017-05-25 13:08 | ED ---
General Adult HPI - General Chief complaint: Shortness of Breath Stated complaint: Post Op Abd Pain and SOB Time Seen by Provider: 05/25/17 12:20 Source: patient, RN notes reviewed Mode of arrival: ambulatory Limitations: no limitations - History of Present Illness Initial comments: This is a 27-year-old female who presents emergency Department complaining of abdominal pain left-sided. Patient states she had bariatric surgery one week ago she states the pain is gotten worse over the last 2 days has been very significant social decided come the emergency department. Patient also states she had an episode earlier today of some shortness of breath but complete resolve. Patient denies any chest pain palpitations shortness of breath currently. Patient denies any nausea vomiting or diarrhea. Patient denies any fever chills. Patient states the pain is not at the incisions but just below the incisions. Patient has had no drainage out of the incisions. Patient is noted no redness. - Related Data Home Medications Medication Instructions Recorded Confirmed Simethicone 40 mg/0.6 ml Drops 40 mg PO DAILY PRN 05/25/17 05/25/17 [Mylicon Drops] Previous Rx's Medication Instructions Recorded HYDROcodone/APAP [[place] Elixir 15 ml PO Q6H PRN #480 solution 05/19/17 7.5-325Mg/15Ml] Ondansetron Odt [Zofran Odt] 4 mg PO Q8HR PRN #9 tab 05/19/17 Allergies Allergy/AdvReac Type Severity Reaction Status Date / Time coconut Allergy Anaphylaxis Verified 05/25/17 12:36 Review of Systems ROS Statement: Those systems with pertinent positive or pertinent negative responses have been documented in the HPI. ROS Other: All systems not noted in ROS Statement are negative. Past Medical History Past Medical History: Neurologic Disorder Additional Past Medical History / Comment(s): MS and Lupus- states no current symptoms. , hx of optic neuritis. History of Any Multi-Drug Resistant Organisms: None Reported Past Surgical History: Bariatric Surgery, Section Additional Past Surgical History / Comment(s): recent EGD sleeve gastrectomy Past Anesthesia/Blood Transfusion Reactions: No Reported Reaction Past Psychological History: No Psychological Hx Reported Smoking Status: Never smoker Past Alcohol Use History: Rare Past Drug Use History: None Reported - Past Family History Mother Family Medical History: Deep Vein Thrombosis (DVT), Pulmonary Embolus Additional Family Medical History / Comment(s): Lupus General Exam - General Exam Comments Initial Comments: GENERAL: Patient is well-developed and well-nourished. Patient is nontoxic and well- hydrated and is in mild distress. ENT: Neck is soft and supple. No significant lymphadenopathy is noted. Oropharynx is clear. Moist mucous membranes. Neck has full range of motion without eliciting any pain. EYES: The sclera were anicteric and conjunctiva were pink and moist. Extraocular movements were intact and pupils were equal round and reactive to light. Eyelids were unremarkable. PULMONARY: Unlabored respirations. Good breath sounds bilaterally. No audible rales rhonchi or wheezing was noted. CARDIOVASCULAR: There is a regular rate and rhythm without any murmurs gallops or rubs. ABDOMEN: Soft and nontender with normal bowel sounds. No palpable organomegaly was noted. There is no palpable pulsatile mass. SKIN: Skin is clear with no lesions or rashes and otherwise unremarkable. NEUROLOGIC: Patient is alert and oriented x3. Cranial nerves II through XII are grossly intact. Motor and sensory are also intact. Normal speech, volume and content. Symmetrical smile. MUSCULOSKELETAL: Normal extremities with adequate strength and full range of motion. LYMPHATICS: No significant lymphadenopathy is noted PSYCHIATRIC: Normal psychiatric evaluation. Limitations: no limitations Course Vital Signs 05/25/17 12:20 Temperature 97.4 F L Pulse Rate 77 Respiratory 16 Rate Blood Pressure 142/74 O2 Sat by Pulse 100 Oximetry Medical Decision Making - Medical Decision Making Patient came to the emergency department I ordered appropriate labs and a CAT scan of the patient's abdomen however in the middle of the patient's stay she spoke with the nurse from bariatric surgery and decided to sign herself out and follow-up upstairs immediately. Disposition Clinical Impression: Abdominal pain Disposition: HOME SELF-CARE Instructions: Abdominal Pain (ED) Referrals: None,Stated [Primary Care Provider] - 1-2 days Time of Disposition: 13:08
--- NOTE | 2017-05-25 16:41 | CT ---
EXAMINATION TYPE: CT abdomen pelvis w con DATE OF EXAM: 05/25/2017 COMPARISON: NONE INDICATION: Left sided mid abdominal pain. Post op gastric sleeve 1 week DLP: 4260.5 mGycm, Automated exposure control for dose reduction was used. CONTRAST: 100 mL of Omnipaque 300. Study performed with Oral Contrast TECHNIQUE: Axial images were obtained from above the diaphragm to the pubic rami in the axial plane a t 5 mm thick sections. Reconstructed images are reviewed on the computer in the coronal plane. Ther e is some limitation due to patient body habitus FINDINGS: Limited CT sections are obtained the lung bases. The lung bases are clear. CT ABDOMEN: Patient is status post gastric sleeve. The gastric sleeve surgery sutures are evident. No free air is evident. No localized fluid collections are evident. Liver: Normal Spleen: Normal Pancreas: Normal Adrenal glands: The adrenal glands are normal. Gallbladder: Normal Kidneys: No masses are evident. No hydronephrosis is present. No cysts are present. Delayed images were obtained through the kidneys, which remain unremarkable. Aorta: Normal Inferior vena cava: Normal. CT PELVIS: Loops of bowel within the abdomen and pelvis are normal. Multiple diverticuli are scattered throu ghout the colon. No suspicious inflammatory change suggest acute diverticulitis is evident. Appendix: Normal as visualized. Urinary bladder: Normal. Genitourinary structures: Uterus contains an IUD. Adnexal regions are clear. Osseous structures: No suspicious lytic or sclerotic lesions. IMPRESSIONS: 1. Diverticulosis without evidence of acute diverticulitis. 2. No acute abdominal process.
[2017-05-26 09:48] VITALS: BP 123/83; PULSE 87; TEMP 97.2; BMI 78.2
== END | disposition home or self-care (01) ==
LOC: EC 12:08 → BARWHC3 12:08 → EC 12:56 → BARWHC3 12:56 → EDSTATUS 13:15 → BARWHC3 13:24
PROVIDERS: ATTEND Surgery Plastic and Reconstructive Surgery
DX: K57.90 Diverticulosis of intestine, part unspecified, without perforation or abscess without bleeding (principal)
CPT/HCPCS: 74177; Q9967

== ENCOUNTER → 2017-06-01 | Outpatient (CLI) | payer BC ==
[2017-06-01 10:30] VITALS: BP 131/86; PULSE 97; RESP 14; TEMP 97.7; BMI 71.1
--- NOTE | 2017-06-01 13:37 | P.PN ---
Progress Note - Text Progress Note Date: 06/01/17 Patient left without being seen. See nurse's note.
== END | disposition home or self-care (01) ==
LOC: BARWHC3 09:58
PROVIDERS: ATTEND Surgery Plastic and Reconstructive Surgery
DX: E66.01 Morbid (severe) obesity due to excess calories (principal); Z68.45 Body mass index [BMI] 70 or greater, adult; Z71.3 Dietary counseling and surveillance
CPT/HCPCS: 97803

== ENCOUNTER 2017-06-05 16:46 | Outpatient (CLI) | payer BC ==
[2017-06-05] MEDS: SODIUM CHLORIDE 0.9% 1,000 ML IV SCH ×2 (17:07→18:06)
== END 2017-06-05 19:12 | disposition home or self-care (01) ==
LOC: PEDOP 16:46
PROVIDERS: ATTEND Surgery Plastic and Reconstructive Surgery
DX: E86.0 Dehydration (principal)
CPT/HCPCS: 96360; 96361

== ENCOUNTER → 2017-06-10 | Outpatient (CLI) | payer BC ==
[2017-06-10 17:33] VITALS: BP 121/67; PULSE 75; RESP 16; TEMP 98.1; BMI 70.4
--- NOTE | 2017-07-24 13:07 | P.PN ---
Subjective Progress Note Date: 06/10/17 DATE OF SERVICE: 06/10/2017 CHIEF COMPLAINT: Status post sleeve gastrectomy HISTORY OF PRESENT ILLNESS: Terrie Velez is a 27-year-old female who is status post sleeve gastrectomy 05/18/2017. She is 1 month out. She required additional IV fluid hydration within the last week. She had nausea that is now resolved. No vomiting. She reports feeling well. No abdominal pain. Her highest weight is now 445 pounds. At her height of 5 foot 3.5 inches, her ideal body weight is 140 pounds. Her highest body mass index was 77.8. Today she comes in weighing 406 pounds. She has lost 21 pounds in 2+ weeks. Lifetime weight loss of 39 pounds. Percent excess weight loss 13%. PHYSICAL EXAM: VITAL SIGNS: Height 5 foot 3.5 inches, weight 406 pounds. BMI 71.0. Vital Signs Temp 98.1 F 06/10/17 17:29 Pulse 75 06/10/17 17:29 Resp 16 06/10/17 17:29 BP 121/67 06/10/17 17:29 Pulse Ox GENERAL: Well-developed female in no acute distress. HEENT: No scleral icterus. Extraocular movements grossly intact. Hears conversational speech. No nasal drainage. NECK: Supple without lymphadenopathy. CHEST: Nonlabored respirations with equal bilateral excursions. CARDIOVASCULAR: Regular rate. Regular rhythm. Radial 2+ pulses. ABDOMEN: Obese, soft, nondistended. No cellulitis. Incision granulated. MUSCULOSKELETAL: No clubbing, cyanosis, or edema. Gross strength 5/5 distal lower extremities. NEURO: No focal or lateralizing signs. Cranial nerves 2 through 12 grossly within normal limits. PSYCH: Appropriate affect. Alert and oriented to person, place and time. SKIN: Good skin turgor. Well perfused. SSESSMENT: 1. Morbid obesity due to excess calories. 2. Body mass index of 77.8 down to 71.0. 4. Obstructive sleep apnea. 5. Osteoarthritis involving the bilateral hips. 6. Osteoarthritis of the bilateral knees. 7. Dietary surveillance and counseling. 8. Lupus. 9. Family history of morbid obesity. 10. Essential hypertension 11. Iron deficiency anemia 12. Status post sleeve gastrectomy PLAN: 1. She is almost 1 month out. Will need bariatric labs. 2. She may return to work. 3. Lifting restrictions for pounds 4 weeks postprocedure. Objective - Vital Signs Vital signs: Vital Signs Temp 98.1 F 06/10/17 17:29 Pulse 75 06/10/17 17:29 Resp 16 06/10/17 17:29 BP 121/67 06/10/17 17:29 Pulse Ox Intake & Output 06/09/17 06/10/17 06/10/17 18:59 06:59 18:59 Weight 184.612 kg
== END | disposition home or self-care (01) ==
LOC: BARWHC3 16:41
PROVIDERS: ATTEND Surgery Plastic and Reconstructive Surgery
DX: Z48.815 Encounter for surgical aftercare following surgery on the digestive system (principal); E66.01 Morbid (severe) obesity due to excess calories; G47.33 Obstructive sleep apnea (adult) (pediatric); M16.0 Bilateral primary osteoarthritis of hip; M17.0 Bilateral primary osteoarthritis of knee; M32.9 Systemic lupus erythematosus, unspecified; I10 Essential (primary) hypertension; D50.9 Iron deficiency anemia, unspecified; Z98.84 Bariatric surgery status; Z84.89 Family history of other specified conditions; Z71.3 Dietary counseling and surveillance; Z68.45 Body mass index [BMI] 70 or greater, adult
CPT/HCPCS: 99211

== ENCOUNTER → 2017-08-05 | Outpatient (CLI) | payer BC ==
[2017-08-05 17:29] VITALS: BMI 67.1
[2017-08-05 18:03] VITALS: BP 122/68; PULSE 60; RESP 16; TEMP 97.9
--- NOTE | 2017-08-05 18:09 | P.PN ---
Subjective Progress Note Date: 08/05/17 DATE OF SERVICE: 08/05/2017 CHIEF COMPLAINT: Status post sleeve gastrectomy HISTORY OF PRESENT ILLNESS: Terrie Velez is a 27-year-old female who is status post sleeve gastrectomy 05/18/2017. She is 1 month out. She required additional IV fluid hydration within the last week. She had nausea that is now resolved. No vomiting. She reports feeling well. No abdominal pain. Her highest weight is now 445 pounds. At her height of 5 foot 3.5 inches, her ideal body weight is 140 pounds. Her highest body mass index was 77.8. Today she comes in weighing 406 pounds. She has lost 21 pounds in 2+ weeks. Lifetime weight loss of 39 pounds. Percent excess weight loss 13%. She was last seen 06/10/2017. Her last weight 406 pounds. Today she weighed 388 pounds. She has occasionally itching of her pannus. PHYSICAL EXAM: VITAL SIGNS: Height 5 foot 3.5 inches, weight 406 pounds. BMI 71.0. Intake & Output 08/04/17 08/05/17 08/05/17 18:59 06:59 18:59 Weight 176.039 kg GENERAL: Well-developed female in no acute distress. HEENT: No scleral icterus. Extraocular movements grossly intact. Hears conversational speech. No nasal drainage. NECK: Supple without lymphadenopathy. CHEST: Nonlabored respirations with equal bilateral excursions. CARDIOVASCULAR: Regular rate. Regular rhythm. Radial 2+ pulses. ABDOMEN: Obese, soft, nondistended. No cellulitis. Incision granulated. MUSCULOSKELETAL: No clubbing, cyanosis, or edema. Gross strength 5/5 distal lower extremities. NEURO: No focal or lateralizing signs. Cranial nerves 2 through 12 grossly within normal limits. PSYCH: Appropriate affect. Alert and oriented to person, place and time. SKIN: Good skin turgor. Well perfused. SSESSMENT: 1. Morbid obesity due to excess calories. 2. Body mass index of 77.8 down to 71.0. 4. Obstructive sleep apnea. 5. Osteoarthritis involving the bilateral hips. 6. Osteoarthritis of the bilateral knees. 7. Dietary surveillance and counseling. 8. Lupus. 9. Family history of morbid obesity. 10. Essential hypertension 11. Iron deficiency anemia 12. Status post sleeve gastrectomy 13. Panniculitis. PLAN: 1. She is doing well. 2. No reports of any troubles. 3. She is tolerating diet. 4. Recommend bariatric labs for follow-up. 5. Nystatin powder prescribed. Objective - Vital Signs Vital signs: Intake & Output 08/04/17 08/05/17 08/05/17 18:59 06:59 18:59 Weight 176.039 kg
== END | disposition home or self-care (01) ==
LOC: BARWHC3 16:50
PROVIDERS: ATTEND Surgery Plastic and Reconstructive Surgery
DX: Z09 Encounter for follow-up examination after completed treatment for conditions other than malignant neoplasm (principal); E66.01 Morbid (severe) obesity due to excess calories; M79.3 Panniculitis, unspecified; G47.33 Obstructive sleep apnea (adult) (pediatric); M17.0 Bilateral primary osteoarthritis of knee; M16.0 Bilateral primary osteoarthritis of hip; M32.9 Systemic lupus erythematosus, unspecified; I10 Essential (primary) hypertension; D50.9 Iron deficiency anemia, unspecified; Z98.84 Bariatric surgery status; Z71.3 Dietary counseling and surveillance; Z68.45 Body mass index [BMI] 70 or greater, adult; Z83.49 Family history of other endocrine, nutritional and metabolic diseases
CPT/HCPCS: 97803; 99211

== ENCOUNTER → 2018-02-10 | Outpatient (CLI) | payer BC ==
[2018-02-10 15:10] VITALS: BP 140/70; PULSE 70; TEMP 97.8; BMI 58.4
--- NOTE | 2018-02-10 15:40 | P.PN ---
Subjective Progress Note Date: 02/10/18 HPI: She wants to get to 280 pounds. She has lost from 456 pounds to 337 pounds. No GERD. No abdominal pain. No nausea. She wants to get down under 300 pounds. Exercise is 45 minutes of cardio and weight lifting at [facility], Thursday through Thursday. She is in the gym 2 hrs daily ABDOMEN: Unremarkable PLAN: 1. She will continue with her exercise 2. Get bariatric labs Objective - Vital Signs Vital signs: Vital Signs Temp 97.8 F 02/10/18 15:06 Pulse 70 02/10/18 15:06 Resp BP 140/70 02/10/18 15:06 Pulse Ox Intake & Output 02/09/18 02/10/18 02/10/18 18:59 06:59 18:59 Weight 153.295 kg
[2018-02-10 16:43] LABS: HCT 39.1 % (34.0-46.0); HGB 12.4 gm/dL (11.4-16.0); MCH 25.6 pg (25.0-35.0); MCHC 31.7 g/dL (31.0-37.0); MCV 80.6 fL (80.0-100.0); Platelet Count 275 k/uL (150-450); RBC 4.85 m/uL (3.80-5.40); RDW 14.7 % (11.5-15.5); WBC 5.9 k/uL (3.8-10.6)
[2018-02-10 16:48] LABS: Partial Thromboplastin Time 26.2 sec (22.0-30.0); Prothrombin Time 10.2 sec (9.0-12.0)
[2018-02-11 03:18] LABS: Parathyroid Hormone Intact 66.4 pg/mL (14.0-72.0)
[2018-02-11 03:32] LABS: Hemoglobin A1C 5.6 % (4.0-6.0)
[2018-02-11 04:18] LABS: Phosphorus 4.3 mg/dL (2.4-5.1)
[2018-02-11 04:19] LABS: Albumin 4.4 g/dL (3.80-4.90); Anion Gap 8.8 mmol/L (4.00-12.00); Calcium 9.5 mg/dL (8.7-10.3); Carbon Dioxide 24.2 mmol/L (21.6-31.8); Globulin 2.2 g/dL (2.1-3.7); Iron Saturation 15.32 (12.00-45.00); LDL Cholesterol,Calculated 100.8 mg/dL (0.0-131.0); Magnesium 1.9 mg/dL (1.5-2.4); Potassium 4.6 mmol/L (3.5-5.5); Total Bilirubin 0.4 mg/dL (0.3-1.2); Total Protein 6.6 g/dL (6.2-8.2); VLDL Calculation 14.2 mg/dL (5.00-40.00)
[2018-02-11 04:28] LABS: Folate, Serum 5.1 ng/mL
[2018-02-11 04:34] LABS: Vitamin D 25 Hydroxy 10.4 ng/mL (30.0-100.0)
[2018-02-11 13:06] LABS: Zinc, Serum 56 ug/dL (60-130)
[2018-02-12 06:51] LABS: Vitamin B1 39 ug/L (38-122)
[2018-02-12 10:01] LABS: Vitamin A 38 ug/dL (38-106)
[2018-02-16 16:07] LABS: Selenium 125 mcg/L (63-160)
== END | disposition home or self-care (01) ==
LOC: BARWHC3 14:23
PROVIDERS: ATTEND Surgery Plastic and Reconstructive Surgery
DX: E66.01 Morbid (severe) obesity due to excess calories (principal); E21.1 Secondary hyperparathyroidism, not elsewhere classified; E89.1 Postprocedural hypoinsulinemia; D50.9 Iron deficiency anemia, unspecified; K90.9 Intestinal malabsorption, unspecified; E55.9 Vitamin D deficiency, unspecified; K76.9 Liver disease, unspecified; N19 Unspecified kidney failure; K50.90 Crohn's disease, unspecified, without complications; Z68.43 Body mass index [BMI] 50.0-59.9, adult
CPT/HCPCS: 36415; 80053; 80061; 82306; 82525; 82607; 82728; 82746; 83036; 83540; 83550; 83735; 83970; 84100; 84134; 84255; 84425; 84443; 84590; 84630; 85027; 85610; 85730; 97803; 99211

== ENCOUNTER → 2018-06-16 | Outpatient (CLI) | payer BC ==
[2018-06-16 16:48] VITALS: BP 119/77; PULSE 55; RESP 16; TEMP 97.9; BMI 54.5
--- NOTE | 2018-06-16 17:01 | P.PN ---
Subjective Progress Note Date: 06/16/18 DATE OF SERVICE: 06/16/2018 CHIEF COMPLAINT: Status post sleeve gastrectomy HISTORY OF PRESENT ILLNESS: Terrie Velez is a 28-year-old female who is status post sleeve gastrectomy 05/18/2017. She is over 1 year out. She has over 100 pound weight loss. She has more energy. No problems with energy. No abdominal pain. No gastroesophageal reflux disease. She reports no issues. At her height of 5 foot 3.5 inches, her ideal body weight is 140 pounds. Her highest weight was 456 pounds. Her highest body mass index was 79.7. Today she comes in weighing 315 pounds from 337 pounds, 5 months ago. She has lost 23 pounds in 5 months. Lifetime weight loss of 141 pounds. Percent excess weight loss 45 %. PHYSICAL EXAM: VITAL SIGNS: Height 5 foot 3.5 inches, weight 315 pounds. BMI 55.0 Vital Signs Temp 97.9 F 06/16/18 16:45 Pulse 55 L 06/16/18 16:45 Resp 16 06/16/18 16:45 BP 119/77 06/16/18 16:45 Pulse Ox GENERAL: Well-developed female in no acute distress. HEENT: No scleral icterus. Extraocular movements grossly intact. Hears conversational speech. No nasal drainage. NECK: Supple without lymphadenopathy. CHEST: Nonlabored respirations with equal bilateral excursions. CARDIOVASCULAR: Regular rate. Regular rhythm. Radial 2+ pulses. ABDOMEN: Obese, soft, nondistended. No cellulitis. No incisional hernia. Has panniculitis. MUSCULOSKELETAL: No clubbing, cyanosis, or edema. NEURO: No focal or lateralizing signs. Cranial nerves 2 through 12 grossly within normal limits. PSYCH: Appropriate affect. Alert and oriented to person, place and time. SKIN: Good skin turgor. Well perfused. SSESSMENT: 1. Morbid obesity due to excess calories. 2. Body mass index of 79.7 down to 55.0 4. Obstructive sleep apnea. 5. Osteoarthritis involving the bilateral hips. 6. Osteoarthritis of the bilateral knees. 7. Dietary surveillance and counseling. 8. Lupus. 9. Family history of morbid obesity. 10. Essential hypertension 11. Iron deficiency anemia 12. Status post sleeve gastrectomy 13. Panniculitis. PLAN: 1. Recommend bariatric labs needed 2. Overall, she is doing well 3. Panniculitis treatment with Nystatin powder Objective - Vital Signs Vital signs: Vital Signs Temp 97.9 F 06/16/18 16:45 Pulse 55 L 06/16/18 16:45 Resp 16 06/16/18 16:45 BP 119/77 06/16/18 16:45 Pulse Ox Intake & Output 06/15/18 06/16/18 06/16/18 18:59 06:59 18:59 Weight 142.995 kg
== END | disposition home or self-care (01) ==
LOC: BARWHC3 14:55
PROVIDERS: ATTEND Surgery Plastic and Reconstructive Surgery
DX: Z48.815 Encounter for surgical aftercare following surgery on the digestive system (principal); E66.01 Morbid (severe) obesity due to excess calories; R63.4 Abnormal weight loss; G47.33 Obstructive sleep apnea (adult) (pediatric); M17.0 Bilateral primary osteoarthritis of knee; I10 Essential (primary) hypertension; D50.9 Iron deficiency anemia, unspecified; M79.3 Panniculitis, unspecified; Z98.84 Bariatric surgery status; Z71.3 Dietary counseling and surveillance; Z83.49 Family history of other endocrine, nutritional and metabolic diseases; Z68.43 Body mass index [BMI] 50.0-59.9, adult
CPT/HCPCS: 99211

== ENCOUNTER → 2020-03-01 | Outpatient (CLI) | payer BC | END | disposition home or self-care (01) | LOC: LABWHC1 16:11 | PROVIDERS: ATTEND Obstetrics & Gynecology | DX: Z03.818 Encounter for observation for suspected exposure to other biological agents ruled out (principal) | CPT/HCPCS: U0003; C9803 ==

== ENCOUNTER 2020-03-19 06:03 | Inpatient (IN) | payer BC ==
[2020-03-16 12:09] VITALS: BMI 55.7
[2020-03-19] MEDS ORDERED: CITRIC ACID-SODIUM CITRATE 15 ML CUP PO ONE (06:20)
[2020-03-19 07:08] LABS: Basophils % (A) 0 %; Eosinophils # (A) 0.1 k/uL (0-0.7); Eosinophils % (A) 1 %; HCT 32.6 % (34.0-46.0); HGB 10.8 gm/dL (11.4-16.0); Lymphocytes # (A) 1.4 k/uL (1.0-4.8); Lymphocytes % (A) 28 %; MCH 27.2 pg (25.0-35.0); MCHC 33.1 g/dL (31.0-37.0); MCV 82.1 fL (80.0-100.0); Mean Platelet Volume 8.2; Monocytes # (A) 0.3 k/uL (0-1.0); Monocytes % (A) 5 %; Neutrophils % (A) 64 %; Platelet Count 218 k/uL (150-450); RBC 3.97 m/uL (3.80-5.40); RDW 14.8 % (11.5-15.5); WBC 4.7 k/uL (3.8-10.6)
[2020-03-19] MEDS: ceFAZolin 3 GM in SODIUM CHLORIDE 0.9% 100 ML IVPB ONE ×2 (07:29→07:32)
[2020-03-19] MEDS ORDERED: LACTATED RINGERS 1,000 ML IV SCH (07:30)
[2020-03-19] MEDS ORDERED: ONDANSETRON 4 MG/2 ML VIAL ONE (07:57)
[2020-03-19] MEDS ORDERED: OXYTOCIN 10 UNIT/ML 1 ML VIAL ONE (07:57)
[2020-03-19] MEDS ORDERED: NALBUPHINE 10 MG/ML (1 ML AMP) ONE (07:57)
[2020-03-19] MEDS ORDERED: KETOROLAC 15 MG/ML 1 ML VIAL ONE (07:57)
[2020-03-19] MEDS ORDERED: MORPHINE SULFATE (PF) 0.3 MG/0.3 ML SYR ONE (07:57)
--- NOTE | 2020-03-19 08:02 | P.HPOB ---
History of Present Illness H&P Date: 03/19/20 This is a 30 year old EDC 03/25/20 at 39 1/7 wks who presents for repeat C/S and TL. She declined . She denies fluid leakage or vaginal bleeding. PMHx: MS, no issues since age 20. Optic neuritis in the past. PSHx: C/S 2014, gastric sleeve 2017. Current smeds: PNVit daily Allergies: coconut FHx: HTN, cervical cancer, colon cancer. ObHx: O(+), GBS (-), Rubella immune, HepBSAg, VDRL, urine culture, GC and Chlam cultures (-). On exam she is 5' 1", 380#, vitaql signs stable. General exam WNL, chest clearm, extremities (-) edema, Cx long, posterior, closed. Assesment: 39 1/7 wks, here fpr r[eat CS amd TL. All questions answered. Declining . Plan: repeat LT C/S with filsche clip application. 3g ancef, pannus retractor. All risks and benefits discussed in detail. Review of Systems Constitutional: Reports as per HPI Past Medical History Past Medical History: Neurologic Disorder Additional Past Medical History / Comment(s): MS and Lupus- states no current symptoms, hx of optic neuritis. History of Any Multi-Drug Resistant Organisms: None Reported Past Surgical History: Bariatric Surgery, Section Additional Past Surgical History / Comment(s): sleeve gastrectomy 2-19-18 Past Anesthesia/Blood Transfusion Reactions: No Reported Reaction Past Psychological History: No Psychological Hx Reported Smoking Status: Never smoker Past Alcohol Use History: None Reported Past Drug Use History: None Reported - Past Family History Mother Family Medical History: Deep Vein Thrombosis (DVT), Pulmonary Embolus Additional Family Medical History / Comment(s): Lupus Medications and Allergies Home Medications Medication Instructions Recorded Confirmed Type Aspirin [Children's Aspirin] 81 mg PO DAILY 03/16/20 03/16/20 History Pnv No.95/Ferrous Fum/Folic AC 1 each PO DAILY 03/16/20 03/19/20 History [ Multivitamin Tablet] Allergies Allergy/AdvReac Type Severity Reaction Status Date / Time coconut Allergy Anaphylaxis Verified 03/16/20 12:03 Exam Vital Signs Temp Pulse Resp BP 03/19/20 06:19 96.9 F L 81 16 112/52 Intake and Output 03/18/20 03/19/20 03/19/20 22:59 06:59 14:59 Other: Weight 138.346 kg see dictation under HPI. Results Result Diagrams: 03/19/20 06:51 Abnormal Lab Results - Last 24 Hours (Table) 03/19/20 Range/Units 06:51 Hgb 10.8 L (11.4-16.0) gm/dL Hct 32.6 L (34.0-46.0) % Assessment and Plan Assessment: 39 1/7 weeks, herre for repeat C/S and TL. Plan: As above. All questions answered. Time with Patient: Less than 30
[2020-03-19] MEDS ORDERED: diphenhydrAMINE 50 MG/ML 1 ML VIAL IVP PRN ×3 (08:43→09:15)
[2020-03-19] MEDS ORDERED: ONDANSETRON 4 MG/2 ML VIAL IVP PRN ×2 (08:43→09:15)
[2020-03-19] MEDS ORDERED: MORPHINE SULFATE 2 MG/ML SYRINGE IVP PRN (08:43)
[2020-03-19] MEDS ORDERED: NALOXONE 0.4 MG/ML 1 ML VIAL IV PRN ×2 (08:43→09:15)
[2020-03-19] MEDS ORDERED: diphenhydrAMINE 50 MG CAP PO PRN (09:15)
[2020-03-19] MEDS ORDERED: ZOLPIDEM 5 MG TAB PO PRN (09:15)
[2020-03-19] MEDS ORDERED: ACETAMINOPHEN TAB 325 MG TAB PO PRN (09:15)
[2020-03-19] MEDS ORDERED: METOCLOPRAMIDE 5 MG/ML 2 ML VIAL IVP PRN (09:15)
[2020-03-19] MEDS ORDERED: diphenhydrAMINE 25 MG CAP PO PRN (09:15)
--- NOTE | 2020-03-19 09:15 | P.OP ---
Date of Procedure: 03/19/20 Preoperative Diagnosis: 39 and one sevenths weeks intrauterine , previous , declining , undesired fertility Postoperative Diagnosis: Same, liveborn male , nuchal cord 1 Procedure(s) Performed: Repeat low transverse section, tubal ligation with Filshie clips Anesthesia: spinal Surgeon: Jessica Louise Member Service Specialist #1: Kiera Pinto Estimated Blood Loss (ml): 400 IV fluids (ml): 1,400 Urine output (ml): 300 Pathology: other (Placenta) Condition: stable Disposition: PACU Description of Procedure: Patient is brought to bring suite where a spinal with Duramorph is administered. 3 g of Ancef are given prophylactically. The appropriate consent is reviewed signed witnessed and dated. The abdominal pannus retracting unit is placed, in the abdomen is prepped and draped in usual sterile fashion. Mcnally catheter to direct drainage. The analgesia is checked and noted to be adequate. A repeat low transverse skin incision is made in this is carried down through the sub cutaneous tissue which is approximately 10 cm deep. The fascia is isolated, scored, and extended bilaterally with curved Sow scissors. Peritoneum is next identified and incised, there is no bowel or bladder involvement. The Marcus disposable ring retractor is placed for good visualization. A repeat low transverse uterine incision is made. Artificial amniorrhexis reveals clear fluid. The incision is extended with blunt dissection. The infant's head is delivered occiput anterior, there is a nuchal cord 1 that was reduced. Patient is officially delivered of a liveborn male at 0833 hours. Umbilical cord is doubly clamped and ligated, he is handed to waiting nurses for evaluation where scores of 9 and 9 at one and 5 minutes respectively are given. The placenta is delivered manually, it is inspected and noted to be intact with trivascular cord at 0834 hours. Uterus is then externalized and massaged. It is wiped clean with a sterile sponge to avoid any retained products of conception. The uterus is closed in a single full-thickness stitch of 0 Vicryl suture, and a running locking manner. Bilateral tubes and ovaries appear normal. Filshie clips are placed in the isthmic portion of the tubes bilaterally, with care to traverse the entire diameter of the tubes into the mesosalpinx. Fimbriated ends are identified. The abdomen is then suctioned with suction on guard. Uterus is gently placed back into the abdominal cavity, bilateral gutters are inspected and cleaned. Peritoneum is allowed to close by secondary intention. Fascia is closed in a running fashion of 0 Vicryl with over ligation in the midline for very good reapproximation. The subcutaneous tissue is irrigated, reapproximated with 3-0 Vicryl and noted to be clean and dry. 4-0 undyed Vicryl issues for final subcutaneous closure. Steri-Strips and Mastisol are applied to the wound, and then the silver nitrate impregnated dressing is also placed. All sponge needle and enhancement counts are correct. Mcnally is draining clear urine, urine output 300 mL's. Patient is brought back to the recovery room in very good condition with stable vital signs, pulse 66, blood pressure 141/76, 96% O2 saturation. She is requesting circumcision for her infant son.
[2020-03-19] MEDS: LACTATED RINGERS 1,000 ML IV SCH ×2 (13:34→17:36)
[2020-03-19] MEDS: KETOROLAC 15 MG/ML 1 ML VIAL IVP SCH ×2 (15:54→22:26)
[2020-03-19] MEDS: SENNOSIDES-DOCUSATE SODIUM 1 EACH TAB PO SCH (22:26)
[2020-03-20 07:49] LABS: Basophils % (A) 0 %; Eosinophils % (A) 0 %; HCT 31.3 % (34.0-46.0); Lymphocytes # (A) 1.2 k/uL (1.0-4.8); Lymphocytes % (A) 20 %; MCH 26.4 pg (25.0-35.0); MCV 82.4 fL (80.0-100.0); Mean Platelet Volume 8.3; Monocytes # (A) 0.3 k/uL (0-1.0); Monocytes % (A) 5 %; Neutrophils # (A) 4.3 k/uL (1.3-7.7); Neutrophils % (A) 73 %; Platelet Count 190 k/uL (150-450); RBC 3.79 m/uL (3.80-5.40); RDW 14.8 % (11.5-15.5); WBC 5.8 k/uL (3.8-10.6)
--- NOTE | 2020-03-20 07:59 | P.PN ---
Subjective Progress Note Date: 03/20/20 Principal diagnosis: Doing well postoperative day #1 Slept well. Positive flatus. No complaints. Objective - Vital Signs Vital signs: Vital Signs Temp 98.3 F 03/20/20 04:00 Pulse 74 03/20/20 04:00 Resp 16 03/20/20 05:00 BP 93/61 03/20/20 04:00 Pulse Ox 100 03/19/20 18:49 Intake & Output 03/19/20 03/20/20 03/20/20 18:59 06:59 18:59 Intake Total 2100 Output Total 1610 Balance 490 Intake: IV 2100 Output: Urine 1210 Uretheral (Mcnally) 300 Estimated Blood Loss 400 Other: Voiding Method Indwelling Catheter # Voids 450 - Constitutional General appearance: Present: morbidly obese - EENT Eyes: Present: PERRLA ENT: Present: hearing grossly normal - Neck Neck: Present: normal ROM - Respiratory Respiratory: bilateral: CTA - Cardiovascular Rhythm: regular - Gastrointestinal Gastrointestinal Comment(s): Incision clean and dry, intact. Fundus firm, midline, symmetric, 18 week size. General gastrointestinal: Present: normal bowel sounds - Integumentary Integumentary: Present: normal - Neurologic Neurologic: Present: CNII-XII intact - Musculoskeletal Musculoskeletal: Present: gait normal, strength equal bilaterally - Psychiatric Psychiatric: Present: A&O x's 3, appropriate affect, intact judgment & insight - Labs CBC & Chem 7: 03/20/20 07:22 Labs: Abnormal Lab Results - Last 24 Hours (Table) 03/20/20 Range/Units 07:22 RBC 3.79 L (3.80-5.40) m/uL Hgb 10.0 L (11.4-16.0) gm/dL Hct 31.3 L (34.0-46.0) % Assessment and Plan Assessment: Doing well postoperative day #1 Plan: Advance diet and activity. Circumcision now. Continue postoperative care. Likely discharge home tomorrow. Time with Patient: Less than 30
--- NOTE | 2020-03-20 08:01 | P.PN ---
Progress Note - Text Progress Note Date: 03/20/20 Postoperative day 1 status post section under spinal anesthesia, and intrathecal morphine given for postoperative analgesia, patient doing well, there is no anesthesia related complications, Patient had no headache, vital signs stable , Assessment and plan= postop day 1 status post , doing well there is no anesthesia related complication.
[2020-03-20] MEDS: IBUPROFEN 600 MG TAB PO PRN ×2 (09:49→16:21)
[2020-03-20] MEDS: SENNOSIDES-DOCUSATE SODIUM 1 EACH TAB PO SCH (09:49)
[2020-03-20 21:01] VITALS: RESP 16
[2020-03-20] MEDS: HYDROcodone/APAP 5-325MG 1 EACH TAB PO PRN (21:53)
--- NOTE | 2020-03-21 07:57 | P.DS ---
Providers Date of admission: 03/19/20 06:03 Expected date of discharge: 03/21/20 Attending physician: Jessica Louise Primary care physician: Stated None Hospital Course: This is a 30-year-old female 2 para 1001 EDC 03/25/2020 at 39 and one sevenths weeks' gestation. Patient presented for repeat transverse section with tubal ligation, previous section noted and undesired fertility documented. is remarkable for blood type O+, rubella status immune, group B strep cultures negative. Please see my dictated history and physical for details. Antibiotic prophylaxis was given, and patient went on to deliver a liveborn male infant with scores of 9 and 9 at one and 5 minutes respectively. There was an estimated blood loss of 400 mL's. Nuchal cord 1. Infant weighed 3290 g or 7 lbs. 4 oz. Please see my dictated operative note for details. This morning the patient is doing well. She is voiding, ambulating, passing flatus without difficulty. Vital signs are stable and she is afebrile. Fundus firm and in the midline, symmetric and 18 week size. Extremities are negative for edema. Incision is clean and dry, intact, Steri-Strips applied with a silver dressing to prevent postoperative infection. Breast-feeding is going well, a prescription for a breast pump has been provided. Circumcision has been performed on the . Patient is judged to be in very good condition for discharge home. She will follow-up with me in the office in 2 weeks for incision check. I have reminded her no intercourse, tampons or douching. She will use [id number] Motrin or Aleve, or Advil as needed for pain. I've asked her to call me with any fevers shakes or chills, foul smelling or copious lochia, with the passage of large blood clots, with any pain not alleviated by [id number] products, or indeed with any concerns. Assessment: Doing well postoperative day number two Patient Condition at Discharge: Good Plan - Discharge Summary Discharge Rx Participant: No New Discharge Prescriptions: No Action Pnv No.95/Ferrous Fum/Folic AC [ Multivitamin Tablet] 1 each PO DAILY Aspirin [Children's Aspirin] 81 mg PO DAILY Discharge Medication List Aspirin [Children's Aspirin] 81 mg PO DAILY 03/16/20 [History] Pnv No.95/Ferrous Fum/Folic AC [ Multivitamin Tablet] 1 each PO DAILY 03/16/20 [History] Follow up Appointment(s)/Referral(s): Jessica Louise MD [STAFF PHYSICIAN] - 2 Weeks
[2020-03-21] MEDS: IBUPROFEN 600 MG TAB PO PRN (08:04)
[2020-03-21 09:20] VITALS: BP 97/59; PULSE 65; TEMP 97.9
[2020-03-21] MEDS: HYDROcodone/APAP 5-325MG 1 EACH TAB PO PRN (09:59)
== END 2020-03-21 10:30 | disposition home or self-care (01) | DRG 784 ==
LOC: 4FBP 06:03
PROVIDERS: ADMIT Obstetrics & Gynecology; ATTEND Obstetrics & Gynecology
PROC: 0UL70CZ Occlusion of Bilateral Fallopian Tubes with Extraluminal Device, Open Approach (ICD-10-PCS; principal; 2020-03-19 08:00)
PROC: 10D00Z1 Extraction of Products of Conception, Low, Open Approach (ICD-10-PCS; principal; 2020-03-19 08:00)
DX: O34.211 Maternal care for low transverse scar from previous cesarean delivery (principal); O99.354 Diseases of the nervous system complicating childbirth; O69.81X0 Labor and delivery complicated by cord around neck, without compression, not applicable or unspecified; O99.844 Bariatric surgery status complicating childbirth; Z3A.39 39 weeks gestation of pregnancy; Z37.0 Single live birth; Z30.2 Encounter for sterilization; Z79.82 Long term (current) use of aspirin; O99.214 Obesity complicating childbirth; E66.01 Morbid (severe) obesity due to excess calories; O99.62 Diseases of the digestive system complicating childbirth; K21.9 Gastro-esophageal reflux disease without esophagitis; O99.892 Other specified diseases and conditions complicating childbirth; G35 Multiple sclerosis; Z91.018 Allergy to other foods; Z82.49 Family history of ischemic heart disease and other diseases of the circulatory system; Z80.0 Family history of malignant neoplasm of digestive organs; Z80.8 Family history of malignant neoplasm of other organs or systems; Z83.2 Family history of diseases of the blood and blood-forming organs and certain disorders involving the immune mechanism
CPT/HCPCS: 85025; 86850; 86900; 86901